=== PATIENT | male | born 1950 | race Caucasian/White ===

== ENCOUNTER 2018-01-09 11:09 | Inpatient (IN) | payer OTHER ==
[~2018-01-09] VITALS: Ht 175.3 cm; Wt 56.3 kg
[~2018-01-09 11:09] MED LIST: ALBU3IS INH; ALBU90OI INH; ASPI325 PO; Benazepril HCl10 MG PO; HYDR1TAB94 PO
[2018-01-09 11:37] LABS: Base Excess Venous -3.4 mmol/L; Bicarbonate Venous 21.7 mmol/L (24.0-30.0); PCO2 Venous 40.9 mmHg (38-42); PO2 Venous 73.1 mmHg (38-42); pH Blood Venous 7.35 (7.34-7.37)
[2018-01-09] MEDS ORDERED: [UNRECOGNIZED DRUG - CODE] PO (14:46)
[2018-01-09] MEDS ORDERED: ASPI81CH PO (15:13)
[2018-01-09 17:28] LABS: Adenovirus Not Detected (NOT DETECT); Bordetella pertussis Not Detected (NOT DETECT); Chlamydophila pneumoniae Not Detected (NOT DETECT); Coronavirus 229E Not Detected (NOT DETECT); Coronavirus HKU1 Not Detected (NOT DETECT); Coronavirus NL63 Not Detected (NOT DETECT); Coronavirus OC43 Not Detected (NOT DETECT); Human Metapneumovirus Not Detected (NOT DETECT); Human Rhinovirus/Enterovirus Not Detected (NOT DETECT); Influenza A/2009-H1 Not Detected (NOT DETECT); Influenza A/H1 Not Detected (NOT DETECT); Influenza A/H3 Not Detected (NOT DETECT); Influenza B Not Detected (NOT DETECT); Mycoplasma pneumoniae Not Detected (NOT DETECT); Parainfluenza Virus 1 Not Detected (NOT DETECT); Parainfluenza Virus 2 Not Detected (NOT DETECT); Parainfluenza Virus 3 Not Detected (NOT DETECT); Parainfluenza Virus 4 Not Detected (NOT DETECT); Respiratory Syncytial Virus Not Detected (NOT DETECT)
[2018-01-09 18:48] LABS: Influenza A Not Detected (NOT DETECT)
[2018-01-09] MEDS ORDERED: STIOLTO RESPIMAT4 GM INH (19:11)
[2018-01-09 23:17] LABS: Source, Urine Catheter
[2018-01-09 23:19] LABS: Bilirubin, Urine Neg (Neg); Blood, Urine 1+ (Neg); Glucose Qualitative, Urine 2+ (Neg); Ketones, Urine 1+ (Neg); Leukocyte Esterase, Urine Neg (Neg); Nitrite, Urine Neg (Neg); Protein, Urine 2+ (Neg); Urobilinogen, Urine NORM (Normal)
[2018-01-09 23:25] LABS: Amorphous Mod (0-Heavy); Appearance, Urine Hazy (Clear); Bacteria Rare /hpf; Color, Urine Yellow (P-Yellow); Hyaline Casts 0-2 /lpf (0-2); Red Blood Cells, Urine 0-2 /hpf (0-2); Squamous Epithelial Cells Few /hpf (Few); White Blood Cells, Urine Not Seen /hpf (0-5)
[2018-01-10 03:35] LABS: Hematocrit 39.7 % (37.0-53.0); Hemoglobin 13.2 g/dL (13.5-17.5); Mean Corpuscular HGB 31.4 pg (26.0-34.0); Mean Corpuscular HGB Conc 33.2 g/dL (31.5-36.5); Mean Corpuscular Volume 94 fL (80-100); Mean Platelet Volume 9.9 fL (9.1-12.4); Platelet Count 212 K/mm3 (150-400); RDW Coefficient Variation 13.9 % (11.7-14.2); RDW Standard Deviation 48.4 fL (35.1-46.3); Red Blood Cell Count 4.21 M/mm3 (4.30-5.90); White Blood Cell Count 4.76 K/mm3 (4.00-11.30)
[2018-01-10 03:52] LABS: Alanine Aminotransfer (ALT/SGP 15 U/L (12-78); Albumin, Blood 2.4 g/dL (3.4-5.0); Albumin/Globulin Ratio 0.8 (0.8-1.8); Alk Phos 44 U/L (50-136); Anion Gap 9 mmol/L (6-16); Aspartate Aminotrans (AST/SGOT 15 U/L (12-37); Bilirubin, Total 0.4 mg/dL (0.1-1.0); Blood Urea Nitrogen 19 mg/dL (8-24); Bun/Creatinine Ratio 28.6 (12.0-20.0); CO2, Blood 20 mmol/L (21-32); Calcium, Blood 7.1 mg/dL (8.5-10.1); Chloride, Blood 114 mmol/L (98-108); Creatinine, Blood 0.66 mg/dL (0.60-1.20); Globulin, Blood 3.1 g/dL (2.2-4.0); Glomerular Filtration Rate >60 (60-); Glucose, Blood 221 mg/dL (70-99); Magnesium, Blood 1.9 mg/dL (1.6-2.4); Phosphorus, Blood 1.9 mg/dL (2.5-4.9); Potassium, Blood 4.1 mmol/L (3.5-5.5); Sodium, Blood 143 mmol/L (136-145); Total Protein, Blood 5.5 g/dL (6.4-8.2)
[2018-01-10 04:11] LABS: BAND PERCENT MAN 21 % (0-8); BASOPHILS PERCENT MAN 0 % (0-2); EOSINOPHILS PERCENT MAN 0 % (0-6); LYMPHOCYTES ABSOLUTE MAN 0.66 K/mm3 (0.84-5.20); LYMPHOCYTES PERCENT MAN 14 % (21-46); METAMYELOCYTE ABSOLUTE MAN 0.47 K/mm3 (0.00-0.00); METAMYELOCYTE PERCENT MAN 10 % (0-0); MONOCYTES ABSOLUTE MAN 0.57 K/mm3 (0.16-1.47); MONOCYTES PERCENT MAN 12 % (4-13); MYELOCYTE ABSOLUTE MAN 0.19 K/mm3 (0.00-0.00); MYELOCYTE PERCENT MAN 4 % (0-0); NEUTROPHILS ABSOLUTE MAN 2.85 K/mm3 (1.96-9.15); SEG NEUTROPHILS PERCENT MAN 39 % (41-73); TOTAL CELLS COUNTED 100
[2018-01-10 04:43] LABS: PCO2 Arterial 32.8 mmHg (35-45); PO2 Arterial 93.9 mmHg (80-100); pH Blood Arterial 7.33 (7.35-7.45)
[2018-01-10 09:42] LABS: PCO2 Arterial 54.3 mmHg (35-45); PO2 Arterial 104 mmHg (80-100); pH Blood Arterial 7.15 (7.35-7.45)
[2018-01-10 11:05] LABS: PCO2 Arterial 39.1 mmHg (35-45); PO2 Arterial 64.2 mmHg (80-100)
[2018-01-10 11:06] LABS: pH Blood Arterial 7.28 (7.35-7.45)
[2018-01-11 04:36] LABS: Hematocrit 32.6 % (37.0-53.0); Hemoglobin 10.7 g/dL (13.5-17.5); Mean Corpuscular HGB 30.3 pg (26.0-34.0); Mean Corpuscular HGB Conc 32.8 g/dL (31.5-36.5); Mean Corpuscular Volume 92 fL (80-100); Mean Platelet Volume 10.9 fL (9.1-12.4); Platelet Count 175 K/mm3 (150-400); RDW Coefficient Variation 14.4 % (11.7-14.2); RDW Standard Deviation 48.9 fL (35.1-46.3); Red Blood Cell Count 3.53 M/mm3 (4.30-5.90); White Blood Cell Count 6.58 K/mm3 (4.00-11.30)
[2018-01-11 04:55] LABS: Anion Gap 6 mmol/L (6-16); Blood Urea Nitrogen 18 mg/dL (8-24); Bun/Creatinine Ratio 30.4 (12.0-20.0); CO2, Blood 23 mmol/L (21-32); Calcium, Blood 7.5 mg/dL (8.5-10.1); Chloride, Blood 114 mmol/L (98-108); Creatinine, Blood 0.59 mg/dL (0.60-1.20); Glomerular Filtration Rate >60 (60-); Glucose, Blood 165 mg/dL (70-99); Magnesium, Blood 2.3 mg/dL (1.6-2.4); Phosphorus, Blood 1.9 mg/dL (2.5-4.9); Potassium, Blood 4.1 mmol/L (3.5-5.5); Sodium, Blood 143 mmol/L (136-145)
[2018-01-11 05:08] LABS: BAND PERCENT MAN 6 % (0-8); BASOPHILS PERCENT MAN 0 % (0-2); EOSINOPHILS PERCENT MAN 0 % (0-6); LYMPHOCYTES ABSOLUTE MAN 0.46 K/mm3 (0.84-5.20); LYMPHOCYTES PERCENT MAN 7 % (21-46); MONOCYTES ABSOLUTE MAN 0.85 K/mm3 (0.16-1.47); MONOCYTES PERCENT MAN 13 % (4-13); NEUTROPHILS ABSOLUTE MAN 5.26 K/mm3 (1.96-9.15); SEG NEUTROPHILS PERCENT MAN 74 % (41-73); TOTAL CELLS COUNTED 100
[2018-01-11 05:24] LABS: PO2 Arterial 76.7 mmHg (80-100); pH Blood Arterial 7.38 (7.35-7.45)
[2018-01-12 03:58] LABS: BASOPHILS ABSOLUTE AUTO 0.01 K/mm3 (0.00-0.23); BASOPHILS PERCENT AUTO 0 % (0-2); Hematocrit 31.4 % (37.0-53.0); Hemoglobin 10.7 g/dL (13.5-17.5); LYMPHOCYTES ABSOLUTE AUTO 0.27 K/mm3 (0.84-5.20); LYMPHOCYTES PERCENT AUTO 4 % (21-46); MONOCYTES ABSOLUTE AUTO 0.72 K/mm3 (0.16-1.47); MONOCYTES PERCENT AUTO 10 % (4-13); Mean Corpuscular HGB 31.2 pg (26.0-34.0); Mean Corpuscular HGB Conc 34.1 g/dL (31.5-36.5); Mean Corpuscular Volume 92 fL (80-100); Mean Platelet Volume 10.5 fL (9.1-12.4); Platelet Count 181 K/mm3 (150-400); RDW Coefficient Variation 14.4 % (11.7-14.2); RDW Standard Deviation 48.9 fL (35.1-46.3); Red Blood Cell Count 3.43 M/mm3 (4.30-5.90); White Blood Cell Count 7.08 K/mm3 (4.00-11.30)
[2018-01-12 04:04] LABS: EOSINOPHILS PERCENT AUTO 0 % (0-6); IMMATURE GRAN ABSOLUTE AUTO 0.03 K/mm3 (0.00-0.10); IMMATURE GRAN PERCENT AUTO 0 % (0-1); NEUTROPHILS ABSOLUTE AUTO 6.05 K/mm3 (1.96-9.15); NEUTROPHILS PERCENT AUTO 86 % (41-73)
[2018-01-12 04:17] LABS: Anion Gap 7 mmol/L (6-16); Blood Urea Nitrogen 23 mg/dL (8-24); Bun/Creatinine Ratio 40.1 (12.0-20.0); CO2, Blood 28 mmol/L (21-32); Calcium, Blood 7.8 mg/dL (8.5-10.1); Chloride, Blood 112 mmol/L (98-108); Creatinine, Blood 0.57 mg/dL (0.60-1.20); Glomerular Filtration Rate >60 (60-); Glucose, Blood 128 mg/dL (70-99); Magnesium, Blood 2.2 mg/dL (1.6-2.4); Potassium, Blood 4.1 mmol/L (3.5-5.5); Sodium, Blood 147 mmol/L (136-145)
[2018-01-12 05:25] LABS: PCO2 Arterial 36.7 mmHg (35-45); PO2 Arterial 68.3 mmHg (80-100); pH Blood Arterial 7.48 (7.35-7.45)
[2018-01-13 03:32] LABS: BASOPHILS PERCENT AUTO 0 % (0-2); EOSINOPHILS PERCENT AUTO 0 % (0-6); Hematocrit 30.7 % (37.0-53.0); Hemoglobin 10.3 g/dL (13.5-17.5); IMMATURE GRAN ABSOLUTE AUTO 0.09 K/mm3 (0.00-0.10); IMMATURE GRAN PERCENT AUTO 1 % (0-1); LYMPHOCYTES ABSOLUTE AUTO 0.36 K/mm3 (0.84-5.20); LYMPHOCYTES PERCENT AUTO 5 % (21-46); MONOCYTES ABSOLUTE AUTO 0.63 K/mm3 (0.16-1.47); MONOCYTES PERCENT AUTO 9 % (4-13); Mean Corpuscular HGB Conc 33.6 g/dL (31.5-36.5); Mean Corpuscular Volume 93 fL (80-100); Mean Platelet Volume 10.4 fL (9.1-12.4); NEUTROPHILS PERCENT AUTO 85 % (41-73); Platelet Count 185 K/mm3 (150-400); RDW Coefficient Variation 14.4 % (11.7-14.2); RDW Standard Deviation 48.9 fL (35.1-46.3); Red Blood Cell Count 3.32 M/mm3 (4.30-5.90); White Blood Cell Count 7.08 K/mm3 (4.00-11.30)
[2018-01-13 03:49] LABS: Anion Gap 5 mmol/L (6-16); Blood Urea Nitrogen 21 mg/dL (8-24); Bun/Creatinine Ratio 39.8 (12.0-20.0); CO2, Blood 29 mmol/L (21-32); Calcium, Blood 7.5 mg/dL (8.5-10.1); Chloride, Blood 111 mmol/L (98-108); Creatinine, Blood 0.53 mg/dL (0.60-1.20); Glomerular Filtration Rate >60 (60-); Glucose, Blood 165 mg/dL (70-99); Magnesium, Blood 2.2 mg/dL (1.6-2.4); Phosphorus, Blood 2.2 mg/dL (2.5-4.9); Potassium, Blood 4.1 mmol/L (3.5-5.5); Sodium, Blood 145 mmol/L (136-145)
[2018-01-15 05:52] LABS: BASOPHILS ABSOLUTE AUTO 0.02 K/mm3 (0.00-0.23); BASOPHILS PERCENT AUTO 0 % (0-2); EOSINOPHILS ABSOLUTE AUTO 0.04 K/mm3 (0.00-0.68); EOSINOPHILS PERCENT AUTO 0 % (0-6); Hemoglobin 11.3 g/dL (13.5-17.5); IMMATURE GRAN ABSOLUTE AUTO 0.41 K/mm3 (0.00-0.10); IMMATURE GRAN PERCENT AUTO 4 % (0-1); LYMPHOCYTES ABSOLUTE AUTO 1.39 K/mm3 (0.84-5.20); LYMPHOCYTES PERCENT AUTO 15 % (21-46); MONOCYTES ABSOLUTE AUTO 1.59 K/mm3 (0.16-1.47); MONOCYTES PERCENT AUTO 17 % (4-13); Mean Corpuscular HGB 30.7 pg (26.0-34.0); Mean Corpuscular HGB Conc 33.2 g/dL (31.5-36.5); Mean Corpuscular Volume 92 fL (80-100); Mean Platelet Volume 10.2 fL (9.1-12.4); NEUTROPHILS ABSOLUTE AUTO 5.86 K/mm3 (1.96-9.15); NEUTROPHILS PERCENT AUTO 63 % (41-73); Platelet Count 233 K/mm3 (150-400); RDW Standard Deviation 47.5 fL (35.1-46.3); Red Blood Cell Count 3.68 M/mm3 (4.30-5.90); White Blood Cell Count 9.31 K/mm3 (4.00-11.30)
[2018-01-15 06:08] LABS: Anion Gap 5 mmol/L (6-16); Blood Urea Nitrogen 17 mg/dL (8-24); Bun/Creatinine Ratio 30.9 (12.0-20.0); CO2, Blood 31 mmol/L (21-32); Calcium, Blood 7.7 mg/dL (8.5-10.1); Chloride, Blood 105 mmol/L (98-108); Creatinine, Blood 0.55 mg/dL (0.60-1.20); Glomerular Filtration Rate >60 (60-); Glucose, Blood 77 mg/dL (70-99); Phosphorus, Blood 2.7 mg/dL (2.5-4.9); Sodium, Blood 141 mmol/L (136-145)
[2018-01-17] MEDS ORDERED: GUAI600T33 PO (11:33)
[2018-01-17] MEDS ORDERED: METO50 PO (11:33)
[2018-01-17] MEDS ORDERED: Nicoderm Cq1 EAC1 TD (11:34)
[2018-01-17] MEDS ORDERED: MIRALAX17 GM PO (11:34)
[2018-01-17] MEDS ORDERED: PRED10 PO (11:36)
[2018-01-17] MEDS ORDERED: CEFU500T30 PO (11:36)
== END 2018-01-17 13:36 | disposition home or self-care (01) | DRG 871 ==
LOC: ER 11:09 → ICUW 13:20 → ICUE 13:20 → ICUW 01-12 18:08 → MEDS 01-13 15:10
PROVIDERS: Emergency Medicine; Hospitalist; Internal Medicine; Internal Medicine Critical Care Medicine
PROC: 5A1945Z Respiratory Ventilation, 24-96 Consecutive Hours (ICD-10-PCS; principal; 2018-01-10)
PROC: 0BH17EZ Insertion of Endotracheal Airway into Trachea, Via Natural or Artificial Opening (ICD-10-PCS; 2018-01-10)
DX: A41.9 Sepsis, unspecified organism (principal); J18.9 Pneumonia, unspecified organism; E43 Unspecified severe protein-calorie malnutrition; G93.41 Metabolic encephalopathy; R65.21 Severe sepsis with septic shock; J96.21 Acute and chronic respiratory failure with hypoxia; J44.1 Chronic obstructive pulmonary disease with (acute) exacerbation; J44.0 Chronic obstructive pulmonary disease with (acute) lower respiratory infection; Z68.1 Body mass index [BMI] 19.9 or less, adult; I10 Essential (primary) hypertension; E78.5 Hyperlipidemia, unspecified; F17.200 Nicotine dependence, unspecified, uncomplicated
CPT/HCPCS: 31500; 31720; 36415; 36569; 36600; 51702; 70450; 71045; 71046; 71260; 80048; 80053; 81001; 82803; 82947; 83605; 83735; 83880; 84100; 85025; 85027; 87040; 87070; 87205; 87486; 87493; 87581; 87633; 87798; 93005; 93010; 94002; 94003; 94640; 94644; 94645; 94660; 94667; 94760; 94761; 96361; 96365; 97110; 97116; 97162; 97166; 97530; 97535; 99285-25; C1751; C9113; G8978; G8979; G8987; G8988; J0456; J0696; J1200; J1650; J1815; J1940; J2060; J2930; J3370; J7030; J7050; J7060; J7120; Q9967

== ENCOUNTER 2022-04-30 15:28 | Inpatient (IN) | payer OTHER ==
[~2022-04-30] VITALS: Ht 175.3 cm; Wt 46.3 kg
[~2022-04-30 15:28] MED LIST changes: +ASPI81CH PO; +CEFU500T30 PO; +GUAI600T33 PO; +METO50 PO; +MIRALAX17 GM PO; +Nicoderm Cq1 EAC1 TD; +PRED10 PO; +STIOLTO RESPIMAT4 GM INH; +[UNRECOGNIZED DRUG - CODE] PO
[2022-04-30] MEDS ORDERED: LISI5 PO (16:07)
[2022-04-30 16:13] LABS: BASOPHILS ABSOLUTE AUTO 0.06 K/mm3 (0.00-0.23); BASOPHILS PERCENT AUTO 0 % (0-2); EOSINOPHILS PERCENT AUTO 0 % (0-6); Hemoglobin 14.1 g/dL (13.5-17.5); IMMATURE GRAN ABSOLUTE AUTO 0.06 K/mm3 (0.00-0.10); IMMATURE GRAN PERCENT AUTO 0 % (0-1); LYMPHOCYTES ABSOLUTE AUTO 0.73 K/mm3 (0.84-5.20); LYMPHOCYTES PERCENT AUTO 5 % (21-46); MONOCYTES ABSOLUTE AUTO 1.42 K/mm3 (0.16-1.47); MONOCYTES PERCENT AUTO 10 % (4-13); Mean Corpuscular HGB 31.8 pg (26.0-34.0); Mean Corpuscular HGB Conc 34.4 g/dL (31.5-36.5); Mean Corpuscular Volume 92 fL (80-100); Mean Platelet Volume 9.4 fL (9.1-12.4); NEUTROPHILS ABSOLUTE AUTO 11.86 K/mm3 (1.96-9.15); NEUTROPHILS PERCENT AUTO 84 % (41-73); Platelet Count 273 K/mm3 (150-400); RDW Coefficient Variation 13.4 % (11.7-14.2); Red Blood Cell Count 4.44 M/mm3 (4.30-5.90); White Blood Cell Count 14.13 K/mm3 (4.00-11.30)
[2022-04-30 16:39] LABS: Albumin, Blood 3.6 g/dL (3.4-5.0); Albumin/Globulin Ratio 0.8 (0.8-1.8); Bilirubin, Total 0.7 mg/dL (0.1-1.0); Bun/Creatinine Ratio 33.7 (12.0-20.0); Calcium, Blood 9.4 mg/dL (8.5-10.1); Creatinine, Blood 0.92 mg/dL (0.60-1.20); Globulin, Blood 4.3 g/dL (2.2-4.0); Potassium, Blood 4.4 mmol/L (3.5-5.5); Total Protein, Blood 7.9 g/dL (6.4-8.2)
[2022-04-30 16:57] LABS: Influenza B, PCR NEGATIVE (NEGATIVE); Resp Syncytial Virus, PCR NEGATIVE (NEGATIVE); SARS-Cov-2 (COVID-19) PCR, MMC NEGATIVE (NEGATIVE)
[2022-04-30 18:12] LABS: Influenza A, PCR POSITIVE (NEGATIVE)
--- NOTE | 2022-05-01 00:44 | NUR ---
2124 RECEIVED PT TO 330 VIA BOBBIRMEHDI FROM ER. PT ABLE TO TX SELF TO BED. RECEIVED REPORT FROM MAYTE TUCKER. [facility] PT ADMITTED FOR INFLUENZA A, REPORTING SOB. BIOX 99% AT REST ON 1L O2. PT LATER UP TO EOB TO VOID BECOMING SOB WITH EXERTION; BIOX DECREASED TO 89%. O2 INCREASED TO 2L. PER REPORT, PT WITH HTN, HLD, COPD, AND AFIB. DR THOMAS TO AFTER ADMISSION TO [facility] ON PT. NEW ORDERS PLACED. PT RESTING QUIETLY AT THIS TIME. OCCASSIONAL LOOSE COUGH NOTED AND REPORTED. CALL LT IN REACH.
--- NOTE | 2022-05-01 04:39 | NUR ---
SHIFT SUMMARY: RESUMED CARE FOR THIS PT AT 0100. SITTING AT EDGE OF BED APPEARING TO BE SHORT OF BREATH. OFFERED BREATHING TREATMENT, PT ACCEPTED. RT PERFORMED TREATMENT, PT REPORTED IMPROVEMENT. WILL CONTINUE TO MONITOR AND REPORT TO DAY NURSE.
[2022-05-01 05:41] LABS: BASOPHILS ABSOLUTE AUTO 0.01 K/mm3 (0.00-0.23); BASOPHILS PERCENT AUTO 0 % (0-2); EOSINOPHILS PERCENT AUTO 0 % (0-6); Hematocrit 40.6 % (37.0-53.0); IMMATURE GRAN ABSOLUTE AUTO 0.04 K/mm3 (0.00-0.10); IMMATURE GRAN PERCENT AUTO 0 % (0-1); LYMPHOCYTES ABSOLUTE AUTO 0.26 K/mm3 (0.84-5.20); LYMPHOCYTES PERCENT AUTO 3 % (21-46); MONOCYTES ABSOLUTE AUTO 1.27 K/mm3 (0.16-1.47); MONOCYTES PERCENT AUTO 13 % (4-13); Mean Corpuscular HGB 31.6 pg (26.0-34.0); Mean Corpuscular HGB Conc 34.5 g/dL (31.5-36.5); Mean Corpuscular Volume 92 fL (80-100); Mean Platelet Volume 9.6 fL (9.1-12.4); NEUTROPHILS ABSOLUTE AUTO 8.02 K/mm3 (1.96-9.15); NEUTROPHILS PERCENT AUTO 84 % (41-73); Platelet Count 258 K/mm3 (150-400); RDW Coefficient Variation 13.4 % (11.7-14.2); RDW Standard Deviation 45.7 fL (35.1-46.3); Red Blood Cell Count 4.43 M/mm3 (4.30-5.90)
[2022-05-01 06:11] LABS: Albumin, Blood 3.1 g/dL (3.4-5.0); Albumin/Globulin Ratio 0.7 (0.8-1.8); Bilirubin, Total 0.5 mg/dL (0.1-1.0); Bun/Creatinine Ratio 43.9 (12.0-20.0); Calcium, Blood 9.1 mg/dL (8.5-10.1); Creatinine, Blood 0.75 mg/dL (0.60-1.20); Globulin, Blood 4.2 g/dL (2.2-4.0); Potassium, Blood 4.7 mmol/L (3.5-5.5); Total Protein, Blood 7.3 g/dL (6.4-8.2)
--- NOTE | 2022-05-01 17:18 | NUR ---
SHIFT SUMMARY: PT ALERT AND ORIENTED X4. HE HAS BEEN VERY PLEASANT AND COOPERATIVE WITH CARE. HE HAS NOT C/O PAIN ANY TIME DUING THE SHIFT. PT HAS HAD A HARSH, PRODUCTIVE COUGH THROUGHOUT THE DAY, STATES THIS HAS BEEN HAPPENING SINCE FLU SYMPTOMS STARTED OCCURING. PT TITRATED FROM 2 LITERS OF OXYGEN TO NOT NEEDING ANY IN ORDER TO BE ABLE TO D/C. PT HAS NOT C/O SOB. PT WAS SHOWN TO HAVE A BMI OF 15. ENSURE IS BEING PROVIDED TO PT. IV PATENT AND FLUSHING. TELE ON W/O ISSUES. CALL LIGHT IN REACH. BED IN LOWEST POSITION. WILL CONTINUE TO MONITOR.
--- NOTE | 2022-05-02 03:11 | NUR ---
Patient resting in bed at this time, no complaints of pain or discomfort.
[2022-05-02] MEDS ORDERED: GUAI600T33 PO (10:19)
[2022-05-02] MEDS ORDERED: Acetaminophen650 M1 PO (10:19)
[2022-05-02] MEDS ORDERED: VISBIOME 112.51 EACH PO (10:20)
[2022-05-02] MEDS ORDERED: Prednisone10 MG PO (10:21)
[2022-05-02] MEDS ORDERED: OSEL75CA PO (10:22)
--- NOTE | 2022-05-02 16:31 | NUR ---
DISCHARGE: PT DISCHARGED THE HOSPITAL VIA [facility]. PT IS SCHEDULED TO GO TO IN [facility] THEN [facility] IV D/C W/O ISSUES, PAIN, OR REDNESS. TELE D/C AND SENT BACK. ALL BELONGINGS SENT WITH PT.
== END 2022-05-02 16:08 | disposition home or self-care (01) | DRG 193 ==
LOC: ER 15:28 → MEDS 15:29
PROVIDERS: Emergency Medicine; ADMIT Internal Medicine
DX: J10.1 Influenza due to other identified influenza virus with other respiratory manifestations (principal); J96.01 Acute respiratory failure with hypoxia; J44.1 Chronic obstructive pulmonary disease with (acute) exacerbation; R64 Cachexia; Z68.1 Body mass index [BMI] 19.9 or less, adult; I10 Essential (primary) hypertension; F17.210 Nicotine dependence, cigarettes, uncomplicated; E78.5 Hyperlipidemia, unspecified; Z20.822 Contact with and (suspected) exposure to COVID-19; Z88.1 Allergy status to other antibiotic agents; Z79.51 Long term (current) use of inhaled steroids; Z79.82 Long term (current) use of aspirin; Z79.899 Other long term (current) drug therapy; Z79.52 Long term (current) use of systemic steroids; Z98.890 Other specified postprocedural states; Z87.01 Personal history of pneumonia (recurrent)
CPT/HCPCS: 0241U; 36415; 71045; 80053; 83880; 84484; 85025; 87070; 87205; 93005; 93010; 94640; 94644; 94664; 94760; 94761; 99285-25; A9270; J0456; J0696; J1650; J2930; J7050

== ENCOUNTER 2023-01-15 18:32 | Emergency (ER) | payer OTHER ==
[~2023-01-15] VITALS: Ht 172.7 cm; Wt 48.5 kg
[~2023-01-15 18:32] MED LIST changes: +Acetaminophen650 M1 PO; +LISI5 PO; +OSEL75CA PO; +Prednisone10 MG PO; +VISBIOME 112.51 EACH PO
[2023-01-15 19:08] VITALS: BP 122/92
[2023-01-15 19:40] LABS: Hematocrit 33.1 % (37.0-53.0); Hemoglobin 10.9 g/dL (13.5-17.5); Mean Corpuscular HGB 31.1 pg (26.0-34.0); Mean Corpuscular HGB Conc 32.9 g/dL (31.5-36.5); Mean Corpuscular Volume 95 fL (80-100); Mean Platelet Volume 9.4 fL (9.1-12.4); Platelet Count 342 K/mm3 (150-400); RDW Coefficient Variation 14.2 % (11.7-14.2); RDW Standard Deviation 49.1 fL (35.1-46.3); White Blood Cell Count 9.67 K/mm3 (4.00-11.30)
[2023-01-15 19:54] LABS: Albumin, Blood 3.4 g/dL (3.4-5.0); Bilirubin, Total 0.2 mg/dL (0.1-1.0); Bun/Creatinine Ratio 22.8 (12.0-20.0); Calcium, Blood 8.8 mg/dL (8.5-10.1); Creatinine, Blood 0.75 mg/dL (0.60-1.20); Globulin, Blood 3.5 g/dL (2.2-4.0); Potassium, Blood 3.8 mmol/L (3.5-5.5); Total Protein, Blood 6.9 g/dL (6.4-8.2)
[2023-01-15 20:01] LABS: BASOPHILS PERCENT MAN 0 % (0-2); EOSINOPHILS ABSOLUTE MAN 3.09 K/mm3 (0.00-0.68); EOSINOPHILS PERCENT MAN 32 % (0-6); LYMPHOCYTES ABSOLUTE MAN 1.25 K/mm3 (0.84-5.20); LYMPHOCYTES PERCENT MAN 13 % (21-46); MONOCYTES ABSOLUTE MAN 1.25 K/mm3 (0.16-1.47); MONOCYTES PERCENT MAN 13 % (4-13); NEUTROPHILS ABSOLUTE MAN 4.06 K/mm3 (1.96-9.15); SEG NEUTROPHILS PERCENT MAN 42 % (41-73); TOTAL CELLS COUNTED 100
[2023-01-15] MEDS ORDERED: CEPH500 PO (21:03)
[2023-01-15] MEDS ORDERED: SULTRIDS PO (21:03)
== END 2023-01-15 21:09 | disposition home or self-care (01) ==
LOC: ER 18:32
PROVIDERS: Student in an Organized Health Care Education/Training Program
DX: L03.116 Cellulitis of left lower limb (principal); F17.210 Nicotine dependence, cigarettes, uncomplicated; J44.9 Chronic obstructive pulmonary disease, unspecified; I10 Essential (primary) hypertension; E78.5 Hyperlipidemia, unspecified; Z88.1 Allergy status to other antibiotic agents; Z91.011 Allergy to milk products; Z79.51 Long term (current) use of inhaled steroids; Z79.82 Long term (current) use of aspirin; Z79.899 Other long term (current) drug therapy
CPT/HCPCS: 80053; 85025; 93971; 99284-25; A9270

== ENCOUNTER 2023-02-20 20:33 | Emergency (ER) | payer OTHER ==
[~2023-02-20] VITALS: Ht 175.3 cm; Wt 49.0 kg
[~2023-02-20 20:33] MED LIST changes: +CEPH500 PO; +SULTRIDS PO
[2023-02-20 22:07] LABS: BASOPHILS ABSOLUTE AUTO 0.13 K/mm3 (0.00-0.23); BASOPHILS PERCENT AUTO 1 % (0-2); EOSINOPHILS ABSOLUTE AUTO 0.88 K/mm3 (0.00-0.68); EOSINOPHILS PERCENT AUTO 8 % (0-6); Hematocrit 31.9 % (37.0-53.0); Hemoglobin 10.7 g/dL (13.5-17.5); IMMATURE GRAN ABSOLUTE AUTO 0.04 K/mm3 (0.00-0.10); IMMATURE GRAN PERCENT AUTO 0 % (0-1); LYMPHOCYTES PERCENT AUTO 18 % (21-46); MONOCYTES ABSOLUTE AUTO 1.76 K/mm3 (0.16-1.47); MONOCYTES PERCENT AUTO 16 % (4-13); Mean Corpuscular HGB 31.5 pg (26.0-34.0); Mean Corpuscular HGB Conc 33.5 g/dL (31.5-36.5); Mean Corpuscular Volume 94 fL (80-100); Mean Platelet Volume 8.9 fL (9.1-12.4); NEUTROPHILS ABSOLUTE AUTO 6.05 K/mm3 (1.96-9.15); NEUTROPHILS PERCENT AUTO 56 % (41-73); Platelet Count 187 K/mm3 (150-400); RDW Coefficient Variation 14.4 % (11.7-14.2); RDW Standard Deviation 49.3 fL (35.1-46.3); White Blood Cell Count 10.76 K/mm3 (4.00-11.30)
[2023-02-20 22:30] LABS: Albumin, Blood 3.6 g/dL (3.4-5.0); Albumin/Globulin Ratio 1.1 (0.8-1.8); Bilirubin, Total 0.2 mg/dL (0.1-1.0); Bun/Creatinine Ratio 24.4 (12.0-20.0); Calcium, Blood 8.8 mg/dL (8.5-10.1); Creatinine, Blood 0.74 mg/dL (0.60-1.20); Globulin, Blood 3.3 g/dL (2.2-4.0); Potassium, Blood 3.8 mmol/L (3.5-5.5); Total Protein, Blood 6.9 g/dL (6.4-8.2)
[2023-02-21 02:00] VITALS: BP 172/97
[2023-02-21] MEDS ORDERED: METPRE4DP PO (02:14)
== END 2023-02-21 02:25 | disposition home or self-care (01) ==
LOC: ER 20:33
PROVIDERS: Emergency Medicine
DX: J44.1 Chronic obstructive pulmonary disease with (acute) exacerbation (principal); I10 Essential (primary) hypertension; E78.5 Hyperlipidemia, unspecified; Z91.011 Allergy to milk products; Z88.1 Allergy status to other antibiotic agents; F17.210 Nicotine dependence, cigarettes, uncomplicated; Z20.822 Contact with and (suspected) exposure to COVID-19
CPT/HCPCS: 71046; 80053; 84484; 85025; 93005; 93010; 94640; 94664; 96374; 99284-25; A9270; J2930

== ENCOUNTER 2023-04-12 16:12 | Emergency (ER) | payer OTHER ==
[~2023-04-12] VITALS: Ht 175.3 cm; Wt 49.0 kg
[~2023-04-12 16:12] MED LIST changes: +METPRE4DP PO
[2023-04-12 16:31] LABS: Base Excess Venous 9.9 mmol/L; Bicarbonate Venous 31.9 mmol/L (24.0-30.0); PCO2 Venous 60.8 mmHg (38-42); pH Blood Venous 7.37 (7.34-7.37)
[2023-04-12 16:32] LABS: BASOPHILS PERCENT AUTO 1 % (0-2); EOSINOPHILS ABSOLUTE AUTO 0.84 K/mm3 (0.00-0.68); EOSINOPHILS PERCENT AUTO 9 % (0-6); Hematocrit 34.3 % (37.0-53.0); Hemoglobin 11.5 g/dL (13.5-17.5); IMMATURE GRAN ABSOLUTE AUTO 0.03 K/mm3 (0.00-0.10); IMMATURE GRAN PERCENT AUTO 0 % (0-1); LYMPHOCYTES ABSOLUTE AUTO 1.69 K/mm3 (0.84-5.20); LYMPHOCYTES PERCENT AUTO 18 % (21-46); MONOCYTES ABSOLUTE AUTO 1.52 K/mm3 (0.16-1.47); MONOCYTES PERCENT AUTO 16 % (4-13); Mean Corpuscular HGB 31.6 pg (26.0-34.0); Mean Corpuscular HGB Conc 33.5 g/dL (31.5-36.5); Mean Corpuscular Volume 94 fL (80-100); Mean Platelet Volume 9.4 fL (9.1-12.4); NEUTROPHILS ABSOLUTE AUTO 5.46 K/mm3 (1.96-9.15); NEUTROPHILS PERCENT AUTO 57 % (41-73); Platelet Count 328 K/mm3 (150-400); RDW Coefficient Variation 13.9 % (11.7-14.2); RDW Standard Deviation 48.1 fL (35.1-46.3); Red Blood Cell Count 3.64 M/mm3 (4.30-5.90); White Blood Cell Count 9.64 K/mm3 (4.00-11.30)
[2023-04-12 16:56] LABS: Albumin, Blood 3.7 g/dL (3.4-5.0); Albumin/Globulin Ratio 1.1 (0.8-1.8); Bilirubin, Total 0.2 mg/dL (0.1-1.0); Bun/Creatinine Ratio 13.2 (12.0-20.0); Calcium, Blood 8.7 mg/dL (8.5-10.1); Creatinine, Blood 0.91 mg/dL (0.60-1.20); Globulin, Blood 3.4 g/dL (2.2-4.0); Potassium, Blood 4.1 mmol/L (3.5-5.5); Total Protein, Blood 7.1 g/dL (6.4-8.2)
[2023-04-12] MEDS ORDERED: PRED20 PO (18:56)
[2023-04-12 19:05] VITALS: BP 121/76
== END 2023-04-12 19:07 | disposition home or self-care (01) ==
LOC: ER 16:12
PROVIDERS: Emergency Medicine
DX: J43.9 Emphysema, unspecified (principal); I10 Essential (primary) hypertension; F17.210 Nicotine dependence, cigarettes, uncomplicated; Z88.1 Allergy status to other antibiotic agents; Z91.011 Allergy to milk products; Z79.82 Long term (current) use of aspirin; Z79.899 Other long term (current) drug therapy; Z79.52 Long term (current) use of systemic steroids
CPT/HCPCS: 71045; 80053; 82803; 84484; 85025; 93005; 93010; 94644; 94664; 96365; 96366; 99285-25; J3475

== ENCOUNTER 2023-06-15 19:10 | Emergency (ER) | payer OTHER ==
[~2023-06-15] VITALS: Ht 175.3 cm; Wt 49.0 kg
[~2023-06-15 19:10] MED LIST changes: +PRED20 PO
[2023-06-15 19:37] LABS: Base Excess Venous 6.6 mmol/L; Bicarbonate Venous 28.6 mmol/L (24.0-30.0); PCO2 Venous 57.9 mmHg (38-42); pH Blood Venous 7.35 (7.34-7.37)
[2023-06-15 19:39] LABS: BASOPHILS ABSOLUTE AUTO 0.09 K/mm3 (0.00-0.23); BASOPHILS PERCENT AUTO 1 % (0-2); EOSINOPHILS ABSOLUTE AUTO 0.58 K/mm3 (0.00-0.68); EOSINOPHILS PERCENT AUTO 7 % (0-6); Hematocrit 35.8 % (37.0-53.0); Hemoglobin 11.7 g/dL (13.5-17.5); IMMATURE GRAN ABSOLUTE AUTO 0.04 K/mm3 (0.00-0.10); IMMATURE GRAN PERCENT AUTO 1 % (0-1); LYMPHOCYTES ABSOLUTE AUTO 1.98 K/mm3 (0.84-5.20); LYMPHOCYTES PERCENT AUTO 23 % (21-46); MONOCYTES ABSOLUTE AUTO 1.16 K/mm3 (0.16-1.47); MONOCYTES PERCENT AUTO 14 % (4-13); Mean Corpuscular HGB Conc 32.7 g/dL (31.5-36.5); Mean Corpuscular Volume 95 fL (80-100); Mean Platelet Volume 9.6 fL (9.1-12.4); NEUTROPHILS ABSOLUTE AUTO 4.74 K/mm3 (1.96-9.15); NEUTROPHILS PERCENT AUTO 55 % (41-73); Platelet Count 216 K/mm3 (150-400); RDW Coefficient Variation 13.4 % (11.7-14.2); RDW Standard Deviation 46.4 fL (35.1-46.3); Red Blood Cell Count 3.78 M/mm3 (4.30-5.90); White Blood Cell Count 8.59 K/mm3 (4.00-11.30)
[2023-06-15 19:53] LABS: Albumin, Blood 3.7 g/dL (3.4-5.0); Bilirubin, Total 0.4 mg/dL (0.1-1.0); Bun/Creatinine Ratio 19.5 (12.0-20.0); Calcium, Blood 9.3 mg/dL (8.5-10.1); Creatinine, Blood 0.72 mg/dL (0.60-1.20); Globulin, Blood 3.6 g/dL (2.2-4.0); Potassium, Blood 4.6 mmol/L (3.5-5.5); Total Protein, Blood 7.3 g/dL (6.4-8.2)
[2023-06-15 20:47] VITALS: BP 117/75
[2023-06-15] MEDS ORDERED: Prednisone20 MG PO (21:04)
== END 2023-06-15 21:40 | disposition home or self-care (01) ==
LOC: ER 19:10
PROVIDERS: Emergency Medicine
DX: J44.1 Chronic obstructive pulmonary disease with (acute) exacerbation (principal); J96.12 Chronic respiratory failure with hypercapnia; Z99.81 Dependence on supplemental oxygen; F17.210 Nicotine dependence, cigarettes, uncomplicated; E78.5 Hyperlipidemia, unspecified; I10 Essential (primary) hypertension; Z88.1 Allergy status to other antibiotic agents; Z91.011 Allergy to milk products; Z79.899 Other long term (current) drug therapy; Z79.82 Long term (current) use of aspirin
CPT/HCPCS: 71045; 80053; 82803; 85025

== ENCOUNTER 2023-07-01 08:01 | Inpatient (IN) | payer OTHER ==
[~2023-07-01] VITALS: Ht 175.3 cm; Wt 49.8 kg
[~2023-07-01 08:01] MED LIST changes: +Prednisone20 MG PO
[2023-07-01] MEDS ORDERED: Albuterol 2.5 MG/3 ML VIAL INH SCH ×2 (08:25→11:15)
[2023-07-01] MEDS ORDERED: PredniSONE 20 MG Tab PO ONE (08:25)
[2023-07-01] MEDS ORDERED: Ipratropium/Albuterol SulF 2.5-0.5MG/3 ML Amp INH ONE (08:25)
[2023-07-01] MEDS ORDERED: Azithromycin 250 MG Tab PO ONE (08:25)
[2023-07-01] MEDS ORDERED: NS 1,000 ML IV SCH ×2 (08:25→10:00)
[2023-07-01 08:32] LABS: BASOPHILS ABSOLUTE AUTO 0.08 K/mm3 (0.00-0.23); BASOPHILS PERCENT AUTO 1 % (0-2); EOSINOPHILS ABSOLUTE AUTO 0.48 K/mm3 (0.00-0.68); EOSINOPHILS PERCENT AUTO 7 % (0-6); Hematocrit 33.3 % (37.0-53.0); Hemoglobin 11.1 g/dL (13.5-17.5); IMMATURE GRAN ABSOLUTE AUTO 0.04 K/mm3 (0.00-0.10); IMMATURE GRAN PERCENT AUTO 1 % (0-1); LYMPHOCYTES ABSOLUTE AUTO 1.09 K/mm3 (0.84-5.20); LYMPHOCYTES PERCENT AUTO 15 % (21-46); MONOCYTES ABSOLUTE AUTO 0.79 K/mm3 (0.16-1.47); MONOCYTES PERCENT AUTO 11 % (4-13); Mean Corpuscular HGB 31.8 pg (26.0-34.0); Mean Corpuscular HGB Conc 33.3 g/dL (31.5-36.5); Mean Corpuscular Volume 95 fL (80-100); Mean Platelet Volume 9.4 fL (9.1-12.4); NEUTROPHILS PERCENT AUTO 66 % (41-73); Platelet Count 292 K/mm3 (150-400); RDW Coefficient Variation 13.1 % (11.7-14.2); RDW Standard Deviation 45.5 fL (35.1-46.3); Red Blood Cell Count 3.49 M/mm3 (4.30-5.90); White Blood Cell Count 7.38 K/mm3 (4.00-11.30)
[2023-07-01 08:50] LABS: Bun/Creatinine Ratio 9.7 (12.0-20.0); Creatinine, Blood 0.72 mg/dL (0.60-1.20); Magnesium, Blood 2.1 mg/dL (1.6-2.4); Potassium, Blood 4.2 mmol/L (3.5-5.5)
[2023-07-01] MEDS ORDERED: STIOLTO RESPIMAT4 G1 INH (10:02)
[2023-07-01] MEDS ORDERED: Ipratropium/Albuterol SulF 2.5-0.5MG/3 ML Amp INH SCH (13:05)
[2023-07-01 13:12] LABS: Influenza A, PCR NEGATIVE (NEGATIVE); Influenza B, PCR NEGATIVE (NEGATIVE); Resp Syncytial Virus, PCR NEGATIVE (NEGATIVE); SARS-Cov-2 (COVID-19) PCR, MMC NEGATIVE (NEGATIVE)
[2023-07-01] MEDS ORDERED: Prochlorperazine Edisylate 10 mg Vial IV PRN (13:15)
[2023-07-01] MEDS ORDERED: Acetaminophen 325 MG TABLET PO PRN (13:20)
[2023-07-01] MEDS ORDERED: FLU VACC QS2023-24(6MOS UP)/PF 60 MCG/0.5 ML SYRINGE IM SCH (13:20)
[2023-07-01] MEDS ORDERED: LORazepam 1 MG Tab PO PRN (13:20)
[2023-07-01] MEDS ORDERED: MethylPREDNISolone Sod Succ 125 MG Vial IV SCH (16:00)
[2023-07-01 16:22] VITALS: BP 125/91
[2023-07-01] MEDS ORDERED: Nicotine 14 MG PATCH TOP SCH (17:00)
[2023-07-01] MEDS ORDERED: ATOR20 PO (19:16)
--- NOTE | 2023-07-01 19:48 | NUR ---
SHIFT SUMMARY- PT ALERT AND ORIENTED, HE IS INDEPENDENT WITH THE URINAL BUT A SBA WITH AMBULATION D/T DYSPNEA ON EXERTION. PT WAS BECOMING MORE IRRITABLE THIS EVENING, HOWEVER HE HAS HAD SEVERAL DOSES OF STEROIDS TODAY. CALLED DR WHITE PRIOR TO GIVING THE 1600 DOSE OF SOLUMEDROL THE PT HAD PO PREDNISONE IN THE ER 60MG. ORDER RECIEVED TO GIVE THE 1600 DOSE. ADMISSION HAS BEEN COMPLETED, PT HAS SOME SCRATCHES ON HIS BACK THAT SEEM TO BE SELF INFLICTED R/T DRY SKIN. PT CLEANED, MEPILEX PLACED ON COCCYX TO PREVENT BREAKDOWN, BLANCHING REDNESS NOTED THERE ON ADMISSION. PT LIVES IN A [place] BUT STATED HE HAS PLACED AN APPLICATION WITH [facility] AND IS WAITING FOR AN APPARTMENT THERE. BEDSIDE REPORT COMPLETED WITH NIGHT RN. NO S&S OF DISTRESS NOTED AT THE TIME OF BEDSIDE REPORT.
[2023-07-01 19:59] VITALS: BP 115/75
[2023-07-02 02:54] VITALS: BP 111/83
[2023-07-02 05:16] LABS: BASOPHILS ABSOLUTE AUTO 0.01 K/mm3 (0.00-0.23); BASOPHILS PERCENT AUTO 0 % (0-2); EOSINOPHILS PERCENT AUTO 0 % (0-6); Hematocrit 31.9 % (37.0-53.0); Hemoglobin 10.7 g/dL (13.5-17.5); IMMATURE GRAN ABSOLUTE AUTO 0.04 K/mm3 (0.00-0.10); IMMATURE GRAN PERCENT AUTO 1 % (0-1); LYMPHOCYTES ABSOLUTE AUTO 0.47 K/mm3 (0.84-5.20); LYMPHOCYTES PERCENT AUTO 8 % (21-46); MONOCYTES ABSOLUTE AUTO 0.23 K/mm3 (0.16-1.47); MONOCYTES PERCENT AUTO 4 % (4-13); Mean Corpuscular HGB 31.5 pg (26.0-34.0); Mean Corpuscular HGB Conc 33.5 g/dL (31.5-36.5); Mean Corpuscular Volume 94 fL (80-100); Mean Platelet Volume 9.2 fL (9.1-12.4); NEUTROPHILS ABSOLUTE AUTO 5.48 K/mm3 (1.96-9.15); NEUTROPHILS PERCENT AUTO 88 % (41-73); Platelet Count 260 K/mm3 (150-400); RDW Coefficient Variation 12.9 % (11.7-14.2); RDW Standard Deviation 44.5 fL (35.1-46.3); White Blood Cell Count 6.23 K/mm3 (4.00-11.30)
[2023-07-02 05:17] LABS: Base Excess Venous 3.7 mmol/L; Bicarbonate Venous 27.5 mmol/L (24.0-30.0); PCO2 Venous 39.9 mmHg (38-42); pH Blood Venous 7.45 (7.34-7.37)
[2023-07-02 05:42] LABS: Bun/Creatinine Ratio 17.6 (12.0-20.0); Calcium, Blood 8.9 mg/dL (8.5-10.1); Creatinine, Blood 0.63 mg/dL (0.60-1.20); Potassium, Blood 4.1 mmol/L (3.5-5.5)
--- NOTE | 2023-07-02 06:21 | NUR ---
SHIFT SUMMARY: PT IS ADMITTED FOR COPD EXACERBATION AND IS A FULL CODE. IS ALERT AND ABLE TO MAKE NEEDS KNOWN. ADLs HAVE BEEN 1P STANDBY DENIES PAIN OR DISCOMFORT WHEN ASKED. TELLY REPORTS SINUS AT 87.
[2023-07-02 07:39] VITALS: BP 105/74
[2023-07-02] MEDS ORDERED: Enoxaparin 40 MG/0.4 ML SYR SC SCH (09:00)
[2023-07-02] MEDS ORDERED: Lisinopril 5 MG Tab PO SCH (09:00)
[2023-07-02] MEDS ORDERED: Azithromycin 500 MG in NS 250 ML IV SCH (09:00)
--- NOTE | 2023-07-02 14:23 | NUR ---
Spiritual care visit conducted. Patient tells me about his medical history and what he is currently struggling with clinically. 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 He is tearful at times as he discusses the challenges of life but reverts back to his ar as the source of comfort and strength. I listening empathically, normalize his experience and provide therapeutic listening, grief support, and prayer. Patient repsonded well and showed signs of being encouraged in his ar. I will continue remain available to the patient.
[2023-07-02 16:20] VITALS: BP 112/78
[2023-07-02] MEDS ORDERED: PredniSONE 20 MG Tab PO SCH (17:00)
[2023-07-02 19:34] VITALS: BP 115/85
--- NOTE | 2023-07-02 20:28 | NUR ---
SHIFT SUMMARY- PT ALERT AND ORIENTED AND VERY PLEASENT AND COOPERATIVE WITH CARE. PT SEEMS TO BE IMPROVED FROM THIS MORNING. HE WAS SWITCHED TO PO STEROIDS TODAY. BEDSIDE REPORT COMPLETED WITH NIGHT RN NO S&S OF DISTRESS NOTED, PT IN BED, CALL LIGHT IN REACH.
[2023-07-03 03:11] VITALS: BP 118/83
--- NOTE | 2023-07-03 05:36 | NUR ---
SHIFT SUMMARY PT A&OX4 AND PLEASANT. PT ON 3L OF OXYGEN AND SATING AT ABOUT 100%. VSS. NO ACUTE CHANGES. PT CALLS APPROPRIATELY. PT C/O CHRONIC RIGHT SHOULDER PAIN. MEDCIATED PER EMAR. BED IN LOWEST POSITION AND CALL LIGHT IN REACH.
[2023-07-03 07:40] VITALS: BP 114/74
[2023-07-03 08:16] VITALS: BP 118/77
[2023-07-03 15:43] VITALS: BP 94/58
[2023-07-03 18:01] VITALS: BP 117/74
--- NOTE | 2023-07-03 18:38 | NUR ---
PT PLEASANT. HAS BEEN ON 3L O2 TODAY. DID HAVE SOFT BP THIS AFT. IMPROVED. PT STATES FEELING PRETTY DECENT TODAY. DENIES B/M TODAY. NO BREATHING CHANGES NOTED TODAY. NO NEW CONCERNS NOTED. BED IN LOW POSITION, CALL LITE IN REACH CALLS APPROP.
[2023-07-03 19:34] VITALS: BP 102/67
[2023-07-04 03:17] VITALS: BP 114/77
--- NOTE | 2023-07-04 04:35 | NUR ---
SHIFT SUMMARY PT A&OX4 AND PLEASANT. NO ACUTE CHANGES. PT C/O ONCE OF RIGHT SHOULDER AND PAIN AND MEDICATED WITH TYLENOL PER EMAR. PT REMINDED TO SHIFT WEIGHT WHILE IN BED TO PREVENT SKIN BREAKDOWN. CONTINUING OXYGEN AT 3L/MIN WHICH IS PT'S BASLINE. VSS. BED IN LOWEST POSITION AND CALL LIGHT IN REACH.
[2023-07-04 04:48] LABS: Base Excess Venous 7 mmol/L; Bicarbonate Venous 29.9 mmol/L (24.0-30.0); PCO2 Venous 48.3 mmHg (38-42); pH Blood Venous 7.42 (7.34-7.37)
[2023-07-04 04:58] LABS: BASOPHILS ABSOLUTE AUTO 0.01 K/mm3 (0.00-0.23); BASOPHILS PERCENT AUTO 0 % (0-2); EOSINOPHILS PERCENT AUTO 0 % (0-6); Hematocrit 32.4 % (37.0-53.0); Hemoglobin 10.9 g/dL (13.5-17.5); IMMATURE GRAN ABSOLUTE AUTO 0.04 K/mm3 (0.00-0.10); IMMATURE GRAN PERCENT AUTO 1 % (0-1); LYMPHOCYTES ABSOLUTE AUTO 0.48 K/mm3 (0.84-5.20); LYMPHOCYTES PERCENT AUTO 6 % (21-46); MONOCYTES ABSOLUTE AUTO 0.86 K/mm3 (0.16-1.47); MONOCYTES PERCENT AUTO 10 % (4-13); Mean Corpuscular HGB 31.8 pg (26.0-34.0); Mean Corpuscular HGB Conc 33.6 g/dL (31.5-36.5); Mean Corpuscular Volume 95 fL (80-100); Mean Platelet Volume 9.5 fL (9.1-12.4); NEUTROPHILS ABSOLUTE AUTO 7.05 K/mm3 (1.96-9.15); NEUTROPHILS PERCENT AUTO 84 % (41-73); Platelet Count 279 K/mm3 (150-400); RDW Coefficient Variation 13.2 % (11.7-14.2); RDW Standard Deviation 45.5 fL (35.1-46.3); Red Blood Cell Count 3.43 M/mm3 (4.30-5.90); White Blood Cell Count 8.44 K/mm3 (4.00-11.30)
[2023-07-04 05:44] LABS: Bun/Creatinine Ratio 22.7 (12.0-20.0); Creatinine, Blood 0.79 mg/dL (0.60-1.20); Potassium, Blood 4.4 mmol/L (3.5-5.5)
[2023-07-04 07:17] VITALS: BP 107/79
--- NOTE | 2023-07-04 10:53 | NUR ---
DR WHITE ROUNDED ON PATIENT, PATIENT TO BE DISCHARGE HOME, PATIENT ALREADY HAS A CAREGIVER PICKING HIM UP FROM THE HOSPITAL AND HAS PORTABLE HOME OXYGEN HERE TO GO HOME WITH
[2023-07-04] MEDS ORDERED: Nicoderm Cq1 EAC1 TOP (13:12)
[2023-07-04] MEDS ORDERED: Prednisone10 MG PO (13:15)
[2023-07-04] MEDS ORDERED: STIOLTO RESPIMAT4 G1 INH (13:17)
--- NOTE | 2023-07-04 16:08 | NUR ---
1410 patient discharged, discharge instructions given to patient and caregiver. both stated understand and denied further questions, pleasant and cooperative to care
== END 2023-07-04 16:01 | disposition home or self-care (01) | DRG 189 ==
LOC: ER 08:01 → MEDS 15:12
PROVIDERS: Student in an Organized Health Care Education/Training Program; ADMIT Internal Medicine
DX: J96.21 Acute and chronic respiratory failure with hypoxia (principal); E43 Unspecified severe protein-calorie malnutrition; J44.1 Chronic obstructive pulmonary disease with (acute) exacerbation; Z68.1 Body mass index [BMI] 19.9 or less, adult; E87.1 Hypo-osmolality and hyponatremia; J96.22 Acute and chronic respiratory failure with hypercapnia; E88.A Wasting disease (syndrome) due to underlying condition; D63.8 Anemia in other chronic diseases classified elsewhere; I10 Essential (primary) hypertension; E78.5 Hyperlipidemia, unspecified; J43.9 Emphysema, unspecified; F17.210 Nicotine dependence, cigarettes, uncomplicated; Z11.52 Encounter for screening for COVID-19; Z99.81 Dependence on supplemental oxygen; Z88.1 Allergy status to other antibiotic agents; Z79.52 Long term (current) use of systemic steroids; Z79.82 Long term (current) use of aspirin
CPT/HCPCS: 0241U; 36415; 71046; 80048; 82803; 83735; 84145; 85025; 94640; 94644; 94664; 94760; 94762; 96360; 96361; 99285-25; A9270; J0456; J1650; J2930; J7030; J7050; J7512

== ENCOUNTER 2024-04-18 13:18 | Inpatient (IN) | payer OTHER ==
[~2024-04-18] VITALS: Ht 175.3 cm; Wt 44.8 kg
[~2024-04-18 13:18] MED LIST changes: +ALBU2.5V5 INH; +B-1100 M1 PO; +LEVO750 PO; +MOME220I INH; +Nicoderm Cq1 EAC1 TOP; +PANT20 PO; +Pulmicort Fle180 MCG INH; +ROBITUSSIN30 MG/511 PO; +STIOLTO RESPIMAT4 G1 INH; +ZYRTEC10 M2 PO; +[UNRECOGNIZED DRUG - OTHER] PO
[2024-04-18] MEDS ORDERED: Ketorolac Tromethamine 30mg Vial IM ONE (14:10)
[2024-04-18] MEDS ORDERED: Morphine Sulfate 4 MG/1 ML Injection IV ONE (16:20)
[2024-04-18] MEDS ORDERED: Methocarbamol 500 MG Tab PO ONE ×2 (16:20→23:40)
[2024-04-18] MEDS ORDERED: Ipratropium/Albuterol SulF 2.5-0.5MG/3 ML Amp INH ONE (16:25)
[2024-04-18] MEDS ORDERED: Nicotine 14 MG PATCH TOP ONE (16:25)
[2024-04-18] MEDS ORDERED: Acetaminophen 325 MG TABLET PO PRN (16:50)
[2024-04-18] MEDS ORDERED: Naloxone HCl 0.4MG / ML 1ML Vial IV PRN (16:55)
[2024-04-18] MEDS ORDERED: Ondansetron HCl 2 MG / ML 2ML Vial IV PRN (16:55)
[2024-04-18] MEDS ORDERED: FLU VACC TS2024-25(6MOS UP)/PF 45 MCG/0.5 ML SYRINGE IM SCH (16:55)
[2024-04-18] MEDS ORDERED: Morphine Sulfate 4 MG/1 ML Injection IV PRN (16:55)
[2024-04-18] MEDS ORDERED: Ketorolac Tromethamine 15mg Vial IV PRN (17:05)
[2024-04-18 19:02] LABS: BASOPHILS ABSOLUTE AUTO 0.07 K/mm3 (0.00-0.23); BASOPHILS PERCENT AUTO 1 % (0-2); EOSINOPHILS ABSOLUTE AUTO 0.27 K/mm3 (0.00-0.68); EOSINOPHILS PERCENT AUTO 2 % (0-6); Hematocrit 31.2 % (37.0-53.0); Hemoglobin 10.5 g/dL (13.5-17.5); IMMATURE GRAN ABSOLUTE AUTO 0.04 K/mm3 (0.00-0.10); IMMATURE GRAN PERCENT AUTO 0 % (0-1); LYMPHOCYTES ABSOLUTE AUTO 0.69 K/mm3 (0.84-5.20); LYMPHOCYTES PERCENT AUTO 6 % (21-46); MONOCYTES ABSOLUTE AUTO 1.26 K/mm3 (0.16-1.47); MONOCYTES PERCENT AUTO 11 % (4-13); Mean Corpuscular HGB 30.7 pg (26.0-34.0); Mean Corpuscular HGB Conc 33.7 g/dL (31.5-36.5); Mean Corpuscular Volume 91 fL (80-100); Mean Platelet Volume 8.9 fL (9.1-12.4); NEUTROPHILS PERCENT AUTO 80 % (41-73); Platelet Count 219 K/mm3 (150-400); RDW Coefficient Variation 14.2 % (11.7-14.2); RDW Standard Deviation 47.9 fL (35.1-46.3); Red Blood Cell Count 3.42 M/mm3 (4.30-5.90); White Blood Cell Count 11.63 K/mm3 (4.00-11.30)
[2024-04-18 19:16] LABS: Base Excess Venous -0.7 mmol/L; Bicarbonate Venous 23.4 mmol/L (24.0-30.0); PCO2 Venous 41.3 mmHg (38-42); pH Blood Venous 7.38 (7.34-7.37)
[2024-04-18 19:20] LABS: Albumin/Globulin Ratio 1.1 (0.8-1.8); Bun/Creatinine Ratio 14.3 (12.0-20.0); Calcium, Blood 8.5 mg/dL (8.5-10.1); Creatinine, Blood 0.84 mg/dL (0.60-1.20); Globulin, Blood 2.8 g/dL (2.2-4.0); Potassium, Blood 3.5 mmol/L (3.5-5.5); Total Protein, Blood 5.8 g/dL (6.4-8.2)
[2024-04-18] MEDS ORDERED: Aspir 8181 MG PO (19:47)
[2024-04-18 20:04] VITALS: BP 118/77
[2024-04-18] MEDS ORDERED: Albuterol 2.5 MG/3 ML VIAL INH PRN (20:15)
[2024-04-18] MEDS ORDERED: Mometasone Furoate Inhaler 220 mcg 14 ACT INH SCH (20:20)
[2024-04-18] MEDS ORDERED: TIOTROPIUM INH SCH (20:25)
[2024-04-18] MEDS ORDERED: OLODATEROL INH SCH (20:25)
[2024-04-18] MEDS ORDERED: Ipratropium/Albuterol SulF 2.5-0.5MG/3 ML Amp INH SCH (20:55)
[2024-04-18] MEDS ORDERED: Docusate Sodium 100 MG Cap PO SCH (21:00)
[2024-04-18] MEDS ORDERED: Methocarbamol 500 MG Tab PO PRN (23:40)
[2024-04-19 03:01] VITALS: BP 110/60
[2024-04-19] MEDS ORDERED: Miconazole Nitrate 2% 85 GM PWD TOP PRN (04:25)
[2024-04-19 05:02] LABS: BASOPHILS ABSOLUTE AUTO 0.02 K/mm3 (0.00-0.23); BASOPHILS PERCENT AUTO 0 % (0-2); EOSINOPHILS ABSOLUTE AUTO 0.21 K/mm3 (0.00-0.68); EOSINOPHILS PERCENT AUTO 2 % (0-6); Hematocrit 32.5 % (37.0-53.0); Hemoglobin 10.8 g/dL (13.5-17.5); IMMATURE GRAN ABSOLUTE AUTO 0.04 K/mm3 (0.00-0.10); IMMATURE GRAN PERCENT AUTO 1 % (0-1); LYMPHOCYTES ABSOLUTE AUTO 0.41 K/mm3 (0.84-5.20); LYMPHOCYTES PERCENT AUTO 5 % (21-46); MONOCYTES ABSOLUTE AUTO 1.06 K/mm3 (0.16-1.47); MONOCYTES PERCENT AUTO 12 % (4-13); Mean Corpuscular HGB 30.1 pg (26.0-34.0); Mean Corpuscular HGB Conc 33.2 g/dL (31.5-36.5); Mean Corpuscular Volume 91 fL (80-100); Mean Platelet Volume 8.9 fL (9.1-12.4); NEUTROPHILS ABSOLUTE AUTO 7.02 K/mm3 (1.96-9.15); NEUTROPHILS PERCENT AUTO 80 % (41-73); Platelet Count 222 K/mm3 (150-400); RDW Coefficient Variation 14.2 % (11.7-14.2); RDW Standard Deviation 47.5 fL (35.1-46.3); Red Blood Cell Count 3.59 M/mm3 (4.30-5.90); White Blood Cell Count 8.76 K/mm3 (4.00-11.30)
--- NOTE | 2024-04-19 05:36 | NUR ---
NOC SUMMARY- PT PAIN MANAGED WELL. PT HAD COMPLAINED OF MUSCLE SPASMS AND PROVIDER ORDERED SOME RELAXERS FOR HIM. PT REPORTS ITCHINESS IN GROIN DESENEX WAS ORDERED WELL. PT HAS BEEN NPO SINCE MIDNIGHT. PT CURRENTLY RESTING QUIETLY. PT DE LUNA DRAINING TO GRAVITY. CALL LIGHT IN REACH.
[2024-04-19 05:44] LABS: Albumin, Blood 2.9 g/dL (3.4-5.0); Albumin/Globulin Ratio 1.1 (0.8-1.8); Bilirubin, Total 0.8 mg/dL (0.1-1.0); Calcium, Blood 8.3 mg/dL (8.5-10.1); Creatinine, Blood 0.75 mg/dL (0.60-1.20); Globulin, Blood 2.7 g/dL (2.2-4.0); Magnesium, Blood 1.9 mg/dL (1.6-2.4); Potassium, Blood 3.3 mmol/L (3.5-5.5); Total Protein, Blood 5.6 g/dL (6.4-8.2)
[2024-04-19 07:20] VITALS: BP 123/64
[2024-04-19] MEDS ORDERED: Enoxaparin 40 MG/0.4 ML SYR SC SCH (09:00)
[2024-04-19] MEDS ORDERED: Loratadine 10 MG Tab PO SCH (09:00)
[2024-04-19] MEDS ORDERED: Potassium Chloride 20 MEQ TabCR PO ONE (09:00)
[2024-04-19] MEDS ORDERED: Nicotine 14 MG PATCH TOP SCH (09:00)
[2024-04-19] MEDS ORDERED: D5W-1/2NS 1,000 ML IV SCH (13:00)
[2024-04-19] MEDS ORDERED: Thiamine HCl 300 MG in NS 100 ML IV ONE (15:50)
[2024-04-19 16:00] VITALS: BP 107/71
[2024-04-19] MEDS ORDERED: ATOR20 PO (16:54)
--- NOTE | 2024-04-19 18:15 | NUR ---
SHIFT SUMMARY A&OX4, COOPERATIVE WITH CARE. R HIP PAIN MEDICATED PER EMAR. NO ACUTE EVENTS THIS SHIFT. DENIES CP/PRESSURE, HEADAACHE, DIZZINESS, OR SOB. ON 3L O2 VIA NC. CONTINUOUS BIOX. DE LUNA PATENT AND DRAINING YELLOW URINE. MRI OF R HIP DONE TODAY. PLANS FOR SURGERY TOMORROW. NPO AT MIDNIGHT. CURRENTL EATING DINNER. FAMILY AT BEDSIDE. CALL LIGHT WITHIN REACH.
[2024-04-19 19:38] VITALS: BP 100/56
[2024-04-20] VITALS (17 sets, daily range): BP systolic 97–159; BP diastolic 62–99
--- NOTE | 2024-04-20 04:59 | NUR ---
A&O, able to make needs known, VSS, ruiz patent and draining clear yellow urine, repositioned as patient allowed for comfort, medicated per MAR for pain, NPO since mid, resting quietly with eyes closed at this time, will cont to monitor until report given to oncoming nurse.
[2024-04-20 06:04] LABS: Bun/Creatinine Ratio 13.5 (12.0-20.0); Creatinine, Blood 0.74 mg/dL (0.60-1.20); Phosphorus, Blood 2.6 mg/dL (2.5-4.9); Potassium, Blood 3.9 mmol/L (3.5-5.5)
[2024-04-20] MEDS ORDERED: Thiamine HCl 100 MG Tab PO SCH (09:00)
[2024-04-20] MEDS ORDERED: Multivitamins 1 Tab PO SCH (09:00)
--- NOTE | 2024-04-20 15:19 | NUR ---
PT BROUGHT FROM FLOOR TO DAY SURGERY FOR PROCEDURE. History, Chart, Medications and Allergies reviewed before start of procedure. Lungs clear T/O to Auscultation. Patient confirms NPO status and agrees with scheduled surgery. Pre-Op teaching done. Pt verbalizes understanding. PT BELONGINGS LEFT IN ROOM ON MEDICAL FLOOR. PT GLASSES TAKEN TO PACU FOR SAFEKEEPING.
[2024-04-20] MEDS ORDERED: Tranexamic Acid 100 ML IV SCH (15:20)
[2024-04-20] MEDS ORDERED: Lactated Ringer's 1,000 ML IV SCH (15:20)
[2024-04-20] MEDS ORDERED: CeFAZolin Sodium 2,000 MG in NS 100 ML IV SCH (15:20)
--- NOTE | 2024-04-20 15:20 | NUR ---
PT HAS 20G IV TO LEFT HAND THAT FLUSHES WELL AND FLOWS TO GRAVITY.
--- NOTE | 2024-04-20 15:30 | NUR ---
PT IS A&OX4, VSS AND ON 3LNC. PT WENT DOWN FOR SURGERY @1530 FOR L HIP FX.
[2024-04-20] MEDS ORDERED: Bupivacaine 0.5% HCl 5 MG/ML 30MLVIAL ONE (15:45)
[2024-04-20] MEDS ORDERED: EpiNEPhrine 1 MG/1 ML 1ML Vial ONE (15:45)
[2024-04-20] MEDS ORDERED: Magnesium Sulf 2 GM/Water 50ML 50 ML IV ONE (15:55)
[2024-04-20] MEDS ORDERED: Magnesium Sulfate 500 MG / ML 2ML Vial IV ONE (16:00)
[2024-04-20] MEDS ORDERED: propofoL 60 ML IV ONE (16:01)
[2024-04-20] MEDS ORDERED: FentaNYL Citrate 50 MCG/ML 2 ML Injection ONE (16:02)
[2024-04-20] MEDS ORDERED: Rocuronium Bromide 10 MG/ML 5ML Injection IV ONE ×2 (16:21→16:26)
[2024-04-20] MEDS ORDERED: Ondansetron HCl 2 MG / ML 2ML Vial ONE (16:26)
[2024-04-20] MEDS ORDERED: Metoclopramide HCl 5MG / ML 2ML Vial ONE (16:26)
--- NOTE | 2024-04-20 16:32 | NUR ---
REVIEWED ALL NOTES AND ASSESSMENTS BY JORGE PAUL AND AGREE WITH THEM.
[2024-04-20] MEDS ORDERED: Sugammadex Sodium 200 MG/2ML SDV (100 MG/ML) ONE (16:45)
--- NOTE | 2024-04-20 19:22 | NUR ---
ARRIVAL/POST OP NOTE PT ARRIVED TO ROOM 220 FROM PACU AT 1805. PT IS A/O X4, RESPONSIVE, TOLERATING PO FLUIDS AND REG DIET W/O N/V. SALINE LOCKED. PT MEDICATED FOR PAIN W/ TORADOL AND TYLENOL. DRESSING ON L HIP C/D/I, PT DENIES N/T TO BLE, CIRCULATION INTACT IN L FOOT. VSS. PT IS ON 3LNC W/ O2 SATS >92%. CALL LIGHT IN REACH. REPORT TO NOC CAITLIN BORGES.
[2024-04-21] MEDS ORDERED: CeFAZolin Sodium 2,000 MG in NS 100 ML IV SCH
[2024-04-21 04:35] VITALS: BP 110/72
--- NOTE | 2024-04-21 04:47 | NUR ---
SHIFT SUMMARY POD1 LEFT GAMMA NAILING. TRANG REMAINED C/D/I OVERNIGHT. CRYOTHERAPY TO SITE. PAIN MANAGED USING NPIS AND PER EMAR. TOLERATING PO. INDWELLING DE LUNA CATHETER IN PLACE FOR ACUTE RETENTION; CATHETER CARES PERFORMED DURING SHIFT. A&OX4. PLEASANT & COOPERATIVE WITH CARES. PT ABLE TO VOICE NEEDS; USED CALL LIGHT APPROPRIATELY T/O SHIFT. PT VOICED UNDERSTANDING OF PLAN OF CARES, DENIES QUESTIONS/CONCERNS AT THIS TIME.
[2024-04-21 06:03] LABS: Bun/Creatinine Ratio 14.3 (12.0-20.0); Creatinine, Blood 0.7 mg/dL (0.60-1.20); Magnesium, Blood 2.3 mg/dL (1.6-2.4); Phosphorus, Blood 2.9 mg/dL (2.5-4.9)
[2024-04-21 07:25] VITALS: BP 106/65
[2024-04-21] MEDS ORDERED: Polyethylene Glycol 3350 17 gm PO PRN (09:10)
[2024-04-21 14:18] VITALS: BP 134/77
--- NOTE | 2024-04-21 14:33 | NUR ---
AFTERNOON SUMMARY POD 1 L HIP NAILING. AQUACEL DRESSING CDI. UP TO CHAIR WITH THERAPY. 1 SBA USING FWW/GB. TYLENOL/TORADOL FOR PAIN CONTROL. MINOR SOFT BITE SIZED DIET. ON BASELINE 3L O2 VIA NC. DE LUNA IN PLACE WITH CLEAR YELLOW URINE. [facility]. CALL LIGHT WITHIN REACH.
--- NOTE | 2024-04-21 19:06 | NUR ---
SHIFT SUMMARY PT A&OX4/VSS/3LNC, UP TO CHAIR, MINOR PO/MEDS ONE AT A TIME, PAIN MANAGED WITH TYLENOL/TORADOL/ROBAXIN, DE LUNA PATENT/DRAINING YELLOW URINE, AMB FWW SBA. REPORT TO KATERINA TUCKER.
[2024-04-21 19:58] VITALS: BP 126/73
[2024-04-22 03:35] VITALS: BP 125/85
--- NOTE | 2024-04-22 04:25 | NUR ---
SHIFT SUMMARY NO ACUTE CHANGES OVERNIGHT. POD2 LEFT HIP NAILING. AQUACELL TO HIP REMAINED C/D/I OVERNIGHT. PAIN MANAGED USING NPIS AND PER EMAR. INDWELLING DE LUNA CATHETER DISCONTINUED AROUND 0400. 1PA USING FWW/GB. 3L NC OVERNIGHT PER BASELINE. A&OX4. PLEASANT & COOPERATIVE WITH CARES. ABLE TO VOICE NEEDS & USED CALL LIGHT APPROPRIATELY OVERNIGHT. PT VOICED UNDERSTANDING OF PLAN OF CARES, DENIES QUESTIONS/CONCERNS AT THIS TIME.
[2024-04-22 05:22] LABS: Bun/Creatinine Ratio 16.8 (12.0-20.0); Calcium, Blood 8.5 mg/dL (8.5-10.1); Creatinine, Blood 0.66 mg/dL (0.60-1.20); Phosphorus, Blood 2.8 mg/dL (2.5-4.9); Potassium, Blood 4.5 mmol/L (3.5-5.5)
[2024-04-22 07:08] VITALS: BP 119/76
[2024-04-22] MEDS ORDERED: Calcium Carbonate 500 MG Tab Chew PO PRN (15:30)
[2024-04-22 15:39] VITALS: BP 126/83
--- NOTE | 2024-04-22 17:30 | NUR ---
SHIFT SUMMARY PT POD2 L HIP NAILING. A/OX4. MINOR PO INTAKE WELL. VOIDING NORMALLY IN URINAL. PT WAS UP IN CHAIR MOST OF THE DAY. ADEQUATE PAIN CONTROL WITH TYLENOL, TORADOL, AND ROBAXIN. PT IN GOOD MOOD AND ENGAGING WITH THERAPY. NO ISSUES NOTED DURING SHIFT. AQUACEL TO L HIP C/D/I. PT HAS CALL LIGHT IN REACH AND SIDE RAILS UP.
[2024-04-22 19:32] VITALS: BP 139/84
[2024-04-23 00:15] VITALS: BP 127/78
[2024-04-23 03:32] VITALS: BP 149/81
--- NOTE | 2024-04-23 06:11 | NUR ---
SHIFT SUMMARY POD 3 L HIP NAILING. AQUACEL CDI. PAIN MANAGED PER EMAR. CONT BIOX IN PLACE WITH SPO2 ABOVE 93% ON 3L NC. MINOR PO INTAKE. ICE TO LEFT HIP TOLERATED. NO ACUTE CHANGES T/O SHIFT. PLAN TO WORK WITH THERAPY TODAY. RESTING IN BED WITH CALL LIGHT IN PLACE. PT ABLE TO MAKE NEEDS KNOWN. WILL GIVE REPORT TO ONCOMING CAITLIN
[2024-04-23 07:29] VITALS: BP 128/77
--- NOTE | 2024-04-23 10:41 | NUR ---
MORNING NOTE ASSUMED CARE AT APPROX 0715. PATIENT ALERT AND ORIENTED X4. COMMUNICATING NEEDS EFFECTIVELY. VSS. ON BASELINE 3L VIA NC, SATs >90%. OCCASIONAL CONGESTED COUGH. EXPERIENCES SHORTNESS OF BREATH WITH MOBILITY. POD 3 L HIP PINING - AQUACEL DRESSING C/D/I. PAIN MANAGED PER EMAR AND WITH ICE PACK. TOLERATING PO INTAKE. USES URINAL INDEPENDENTLY TO VOID. UP WITH 1P ASSIST FWW GB TO RECLINER CHAIR THIS MORNING. BEDBATH PERFORMED. CALL LIGHT IN REACH.
--- NOTE | 2024-04-23 14:54 | NUR ---
REPORT GIVEN TO CHAPO TUCKER TO ASSUME CARE AT THIS TIME
[2024-04-23 15:03] VITALS: BP 129/82
[2024-04-23 19:37] VITALS: BP 119/79
--- NOTE | 2024-04-23 19:58 | NUR ---
SHIFT SUMMARY POD3 L HIP PINNING, A/O, VSS, TOLERATING PO, 3L NC WITH IS HIS BASELINE, HE WAS UP IN THE CHAIR WHEN THIS RN TOOK OVER CARE FROM PRIOR RN, MEDICATED FOR PAIN 1X. NO ACUTE EVENTS THIS SHIFT, CALL LIGHT IN REACH.
[2024-04-24] MEDS ORDERED: HYDROcodone 5-APAP 325 TAB PO PRN ×2 (01:50)
[2024-04-24 03:50] VITALS: BP 122/77
--- NOTE | 2024-04-24 04:14 | NUR ---
SHIFT SUMMARY POD 4 LEFT HIP PINNING. NO ACUTE CHANGES T/O SHIFT. A/OX4 WITH VSS. AQUACEL TO LEFT HIP CDI, ICE THERAPY APPLIED MINOR. PAIN MANAGED PER EMAR. UP IN CHAIR FOR START OF SHIFT. 3L NC AT BASELINE, BREATHING TX PRN. MINOR PO INTAKE. IVF SL. PLAN TO WORK WITH THERAPY AND D[facility]. PT ABLE TO MAKE NEEDS KNOWN. HAS CALL LIGHT IN REACH. WILL REPORT TO ONCOMING CAITLIN
[2024-04-24 04:43] LABS: BASOPHILS ABSOLUTE AUTO 0.08 K/mm3 (0.00-0.23); BASOPHILS PERCENT AUTO 1 % (0-2); EOSINOPHILS ABSOLUTE AUTO 0.57 K/mm3 (0.00-0.68); EOSINOPHILS PERCENT AUTO 9 % (0-6); Hematocrit 27.9 % (37.0-53.0); Hemoglobin 9.5 g/dL (13.5-17.5); IMMATURE GRAN ABSOLUTE AUTO 0.03 K/mm3 (0.00-0.10); IMMATURE GRAN PERCENT AUTO 1 % (0-1); LYMPHOCYTES ABSOLUTE AUTO 0.77 K/mm3 (0.84-5.20); LYMPHOCYTES PERCENT AUTO 13 % (21-46); MONOCYTES ABSOLUTE AUTO 0.91 K/mm3 (0.16-1.47); MONOCYTES PERCENT AUTO 15 % (4-13); Mean Corpuscular HGB 29.9 pg (26.0-34.0); Mean Corpuscular HGB Conc 34.1 g/dL (31.5-36.5); Mean Corpuscular Volume 88 fL (80-100); Mean Platelet Volume 8.7 fL (9.1-12.4); NEUTROPHILS ABSOLUTE AUTO 3.77 K/mm3 (1.96-9.15); NEUTROPHILS PERCENT AUTO 62 % (41-73); Platelet Count 329 K/mm3 (150-400); RDW Coefficient Variation 13.9 % (11.7-14.2); RDW Standard Deviation 45.1 fL (35.1-46.3); Red Blood Cell Count 3.18 M/mm3 (4.30-5.90); White Blood Cell Count 6.13 K/mm3 (4.00-11.30)
[2024-04-24 05:04] LABS: Albumin, Blood 2.4 g/dL (3.4-5.0); Albumin/Globulin Ratio 0.8 (0.8-1.8); Bilirubin, Total 0.9 mg/dL (0.1-1.0); Bun/Creatinine Ratio 19.6 (12.0-20.0); Calcium, Blood 8.3 mg/dL (8.5-10.1); Creatinine, Blood 0.61 mg/dL (0.60-1.20); Globulin, Blood 3.2 g/dL (2.2-4.0); Magnesium, Blood 1.9 mg/dL (1.6-2.4); Potassium, Blood 4.3 mmol/L (3.5-5.5); Total Protein, Blood 5.6 g/dL (6.4-8.2)
[2024-04-24 07:05] VITALS: BP 120/78
--- NOTE | 2024-04-24 10:31 | NUR ---
MORNING NOTE THIS RN ASSUMED CARE AT APPROX 0715. PATIENT ALERT AND ORIENTED X4. COMMUNICATING NEEDS EFFECTIVELY. VSS. ON HOME 3L VIA NC, SATs >90%. DENIES SHORTNESS OF BREATH AT REST, MILD SHORTNESS OF BREATH WITH MOBILITY. OCCASIONAL CONGESTED HACKING COUGH. POD 4 L HIP PINING - DRESSING C/D/I. TOLERATING PO INTAKE. UP WITH 1P FWW GB TO CHAIR, BSC. CURRENTLY SITTING IN CHAIR. CALL LIGHT IN REACH.
[2024-04-24 14:18] VITALS: BP 125/86
--- NOTE | 2024-04-24 17:29 | NUR ---
SHIFT SUMMARY NO ACUTE EVENTS SINCE PREVIOUS DOCUMENTATION. VSS. PATIENT REMAINS ON 3L VIA NC, SATs >90%. RECEIVING PRN BREATHING TREATMENTS FROM RT. AQUACEL DRESSING C/D/I. PAIN MANAGED PER EMAR AND WITH ICE PACK. TOLERATING PO INTAKE. UP WITH 1P FWW GB TO RECLINER CHAIR. USES URINAL INDEPENDENTLY TO VOID. NO BM THIS SHIFT. CALL LIGHT IN REACH. WILL CONTINUE TO MONITOR AND REPORT TO ONCOMING RN.
[2024-04-24 20:05] VITALS: BP 93/57
[2024-04-25 02:09] VITALS: BP 108/64
--- NOTE | 2024-04-25 04:28 | NUR ---
SHIFT SUMMARY LEDY WAS ALERT AND FULLY ORIENTED ON ASSESMENT AND VISITING WITH HIS NEPHEW. PT AQUACEL TO HIP IS C/D/I, PAIN IS WELL CONTROLLED. NO ACUTE EVENTS TONIGHT. PT RESTING WITH CALL LIGHT IN REACH.
[2024-04-25 07:23] VITALS: BP 113/77
[2024-04-25 13:01] LABS: Albumin, Blood 2.6 g/dL (3.4-5.0); Albumin/Globulin Ratio 0.8 (0.8-1.8); Bun/Creatinine Ratio 19.1 (12.0-20.0); Calcium, Blood 8.6 mg/dL (8.5-10.1); Creatinine, Blood 0.63 mg/dL (0.60-1.20); Globulin, Blood 3.2 g/dL (2.2-4.0); Potassium, Blood 4.5 mmol/L (3.5-5.5); Total Protein, Blood 5.8 g/dL (6.4-8.2)
[2024-04-25] MEDS ORDERED: HYDROcodone 5-APAP 325 TAB PO PRN (14:21)
[2024-04-25 15:07] VITALS: BP 100/62
[2024-04-25] MEDS ORDERED: Lactated Ringer's 1,000 ML IV SCH (17:05)
[2024-04-25] MEDS ORDERED: Naproxen 250 MG TAB PO PRN (17:05)
[2024-04-25] MEDS ORDERED: HYDROmorphone HCl 2 MG Tab PO PRN (17:05)
--- NOTE | 2024-04-25 17:21 | NUR ---
CARE ASSUMED OF PT AT APPROXIMATELY 1710. PT ALERT/ORIENTED AND PLEASANT DURING BEDSIDE REPORT.
[2024-04-25 19:08] VITALS: BP 111/61
--- NOTE | 2024-04-25 19:39 | NUR ---
SHIFT SUMMARY PT HAS DONE WELL TODAY. PAIN CONTROLLED. EATING, DRINKING, & URINATING VERY WELL. WORKED w/ THERAPY. PLANS TO DC TO [place] TOMORROW.
--- NOTE | 2024-04-25 19:58 | NUR ---
NO CHANGES SINCE CARE ASSUMED OF PT AT APPROXIMATELY 1710. BEDSIDE REPORT GIVEN TO KOLBY TUCKER.
[2024-04-26 03:29] VITALS: BP 103/67
--- NOTE | 2024-04-26 04:05 | NUR ---
SHIFT SUMMARY POD 6 L HIP PINNING PT ABLE TO REST DURING THE SHIFT. PAIN MANAGED PER EMAR. TOLERATING PO INTAKE. VOIDING. AQAUCEL TO L HIP IS C/D/I. PT ON BASELINE 3L NC. 1P ASST TO CHAIR. VSS. NO OTHER CONCERNS AT THIS TIME, CALL LIGHT WITHIN REACH
[2024-04-26 05:01] LABS: Albumin, Blood 2.5 g/dL (3.4-5.0); Albumin/Globulin Ratio 0.9 (0.8-1.8); Bilirubin, Total 0.8 mg/dL (0.1-1.0); Calcium, Blood 8.7 mg/dL (8.5-10.1); Creatinine, Blood 0.67 mg/dL (0.60-1.20); Globulin, Blood 2.8 g/dL (2.2-4.0); Potassium, Blood 4.3 mmol/L (3.5-5.5); Total Protein, Blood 5.3 g/dL (6.4-8.2)
[2024-04-26 07:15] VITALS: BP 124/76
[2024-04-26 10:43] VITALS: BP 117/75
--- NOTE | 2024-04-26 10:51 | NUR ---
MESSAGE LEFT FOR DR. BEARD AT 0598 REQUESTING RETURN CALL REGARDING DISCHARGE CONCERNS.
--- NOTE | 2024-04-26 11:09 | NUR ---
SHORTNESS OF BREATH PT REPORTED HE FELT SOME INCREASED SHORTNESS OF BREATH AT APPROXIMATELY 1030. RESP RATE AND EFFORT APPEAR ELEVATED. HR LOW 100'S, RESP RATE 24-26, O2 SATURATION 100% ON 3L O2 VIA NC, TEMP 99.2, BP WNL, VEW SCORE 3. DR. BEARD NOTIFIED OF CHANGES, SHE ORDERED A STAT CHEST XRAY. YAMILA TUCKER FROM DISCHARGE PLANNING WAS NOTIFIED OF CHANGES, PLAN TO DELAY DISCHARGE AT THIS TIME. PT HAS INCENTIVE SPIROMETER AT HIS BEDSIDE BUT REPORTS HE HAS ONLY BEEN OCCASIONALLY USING IT. HE WAS EDUCATED TO USE HIS INCENTIVE SPIROMETER 3X EVERY 15 MINUTES, PT DEMONSTRATED USE AND WAS COACHED ABOUT PROPER TECHNIQUE. AFTER USING IS PT COUGHED, MOIST AND PRODUCTIVE, THICK SECRETIONS.
[2024-04-26] MEDS ORDERED: Azithromycin 250 MG Tab PO ONE (12:35)
[2024-04-26] MEDS ORDERED: Amoxicillin/Clavulanate K 875 MG Tab PO SCH (13:00)
--- NOTE | 2024-04-26 13:10 | NUR ---
PER DR. BEARD CONTINUE WITH PLAN FOR DISCHARGE AT 1400. ATTEMPTED TO GIVE REPORT TO XIAO TUCKER AT THE [facility] AT 1311.
[2024-04-26 13:11] VITALS: BP 118/75
--- NOTE | 2024-04-26 14:42 | NUR ---
DISCHARGE REPORT GIVEN TO XIAO TUCKER AT THE [place] PRIOR TO DISCHARGE. SHE WAS NOTIFIED OF VS FROM THIS AM WELL CHEST XRAY AND THAT ABX HAVE BEEN STARTED. PT DISCHARGED WITH TRANSPORT JUST AFTER 2PM.
== END 2024-04-26 14:20 | DRG 480 ==
LOC: ER 13:18 → MEDS 13:19 → ER 17:51 → MEDS 18:25 → SURS 04-19 15:07 → MEDS 04-19 15:08 → SURS 04-20 16:16
PROVIDERS: Internal Medicine; Orthopaedic Surgery Sports Medicine; ADMIT Student in an Organized Health Care Education/Training Program
PROC: 0QS706Z Reposition Left Upper Femur with Intramedullary Internal Fixation Device, Open Approach (ICD-10-PCS; principal; 2024-04-20 16:00)
DX: S72.142A Displaced intertrochanteric fracture of left femur, initial encounter for closed fracture (principal); J18.9 Pneumonia, unspecified organism; J96.11 Chronic respiratory failure with hypoxia; J44.0 Chronic obstructive pulmonary disease with (acute) lower respiratory infection; E78.5 Hyperlipidemia, unspecified; I10 Essential (primary) hypertension; J43.9 Emphysema, unspecified; R13.10 Dysphagia, unspecified; W01.0XXA Fall on same level from slipping, tripping and stumbling without subsequent striking against object, initial encounter; Z99.81 Dependence on supplemental oxygen; Z87.891 Personal history of nicotine dependence; Z79.899 Other long term (current) drug therapy; Z88.1 Allergy status to other antibiotic agents; Z91.011 Allergy to milk products
CPT/HCPCS: 36415; 51701; 71045; 72192; 73502; 73721; 76705; 76857; 80048; 80053; 82803; 82947; 83735; 84100; 85025; 92526; 92610; 94640; 94664; 94760; 94762; 96372; 96374; 96375; 96376; 97110; 97161; 97165; 97530; 97535; 99285-25; A9270; C1713; G0378; J0171; J0690; J1650; J1885; J2270; J2405; J2704; J2765; J3010; J3411; J7042; J7120

== ENCOUNTER 2025-04-08 19:40 | Inpatient (IN) | payer OTHER ==
[~2025-04-08] VITALS: Ht 175.3 cm; Wt 54.4 kg
[~2025-04-08 19:40] MED LIST changes: +ATOR20 PO; +Aspir 8181 MG PO
[2025-04-08] MEDS ORDERED: Ipratropium/Albuterol SulF 2.5-0.5MG/3 ML Amp INH ONE (19:55)
[2025-04-08 20:00] LABS: BASOPHILS ABSOLUTE AUTO 0.07 K/mm3 (0.00-0.23); BASOPHILS PERCENT AUTO 1 % (0-2); EOSINOPHILS ABSOLUTE AUTO 0.33 K/mm3 (0.00-0.68); EOSINOPHILS PERCENT AUTO 5 % (0-6); Hematocrit 36.1 % (37.0-53.0); Hemoglobin 12.4 g/dL (13.5-17.5); IMMATURE GRAN ABSOLUTE AUTO 0.05 K/mm3 (0.00-0.10); IMMATURE GRAN PERCENT AUTO 1 % (0-1); LYMPHOCYTES ABSOLUTE AUTO 1.05 K/mm3 (0.84-5.20); LYMPHOCYTES PERCENT AUTO 15 % (21-46); MONOCYTES ABSOLUTE AUTO 1.35 K/mm3 (0.16-1.47); MONOCYTES PERCENT AUTO 19 % (4-13); Mean Corpuscular HGB Conc 34.3 g/dL (31.5-36.5); Mean Corpuscular Volume 91 fL (80-100); NEUTROPHILS ABSOLUTE AUTO 4.21 K/mm3 (1.96-9.15); NEUTROPHILS PERCENT AUTO 60 % (41-73); NRBC ABSOLUTE 0.00 K/mm3 (0.00-0.02); NRBC Auto 0.0 /100 WBC (0.0-0.2); Platelet Count 237 K/mm3 (150-400); RDW Coefficient Variation 12.8 % (11.7-14.2); RDW Standard Deviation 42.5 fL (35.1-46.3)
[2025-04-08 20:15] LABS: Alanine Aminotransfer (ALT/SGP 27.0 U/L (12-78); Albumin, Blood 3.6 g/dL (3.4-5.0); Albumin/Globulin Ratio 1.2 (0.8-1.8); Anion Gap 6.0 mmol/L (3-11); Aspartate Aminotrans (AST/SGOT 19.0 U/L (12-37); Bilirubin, Total 0.4 mg/dL (0.1-1.0); Blood Urea Nitrogen 14.0 mg/dL (8-24); CO2, Blood 32.0 mmol/L (21-32); Calcium, Blood 8.8 mg/dL (8.5-10.1); Chloride, Blood 90.0 mmol/L (98-108); Creatinine, Blood 0.67 mg/dL (0.60-1.20); Globulin, Blood 2.9 g/dL (2.2-4.0); Glucose, Blood 115.0 mg/dL (70-99); Potassium, Blood 4.4 mmol/L (3.5-5.5); Sodium, Blood 124.0 mmol/L (136-145); Total Protein, Blood 6.5 g/dL (6.4-8.2)
[2025-04-08 21:15] LABS: Source, Urine Clean Catch
[2025-04-08] MEDS ORDERED: Albuterol 2.5 MG/3 ML VIAL INH SCH (21:15)
[2025-04-08 21:26] LABS: Bilirubin, Urine Neg (Neg); Color, Urine Yellow (P-Yellow); Glucose Qualitative, Urine Neg (Neg); Ketones, Urine Neg (Neg); Leukocyte Esterase, Urine Neg (Neg); Protein, Urine Neg (Neg); Specific Gravity, Urine 1.010 (1.003-1.022); Urobilinogen, Urine NORM (Normal)
[2025-04-08 21:29] LABS: Sodium, Urine, Random 31 mmol/L (20-110)
[2025-04-08 21:36] LABS: Osmolality, Urine 163 mos/kg (15-1400)
[2025-04-08] MEDS ORDERED: FLU VACC TS2025(65UP)/MF59C/PF 45 MCG/0.5 ML SYRINGE IM SCH (22:05)
[2025-04-08] MEDS ORDERED: Ipratropium/Albuterol SulF 2.5-0.5MG/3 ML Amp INH SCH (22:25)
[2025-04-08] MEDS ORDERED: LORA10ER PO (23:49)
[2025-04-08] MEDS ORDERED: ALPR.25 PO (23:51)
[2025-04-09 04:46] VITALS: BP 114/73
[2025-04-09 06:06] LABS: Anion Gap 9.0 mmol/L (3-11); Blood Urea Nitrogen 18.0 mg/dL (8-24); CO2, Blood 28.0 mmol/L (21-32); Chloride, Blood 97.0 mmol/L (98-108); Creatinine, Blood 0.61 mg/dL (0.60-1.20); Glucose, Blood 177.0 mg/dL (70-99); Potassium, Blood 4.2 mmol/L (3.5-5.5); Sodium, Blood 130.0 mmol/L (136-145)
--- NOTE | 2025-04-09 06:45 | NUR ---
ADMIT NOTE/HE[employer]ENC[employer] DEAN SUMMARY PT A&OX4, VSS. ABLE TO COMMUNICATE NEEDS APPROPRIATELY. ADMIT FROM ED TODAY FOR HYPONATREMIA. ORIENTED TO CALL LIGHT, ROOM, AND FALL PRECAUTIONS. PT HAS BEEN ASLEEP ON AND OFF THIS SHIFT SINCE ADMISSION. CHEST RISE/RESPIRATIONS NOTED. ON 1L NC W/ CONT PULSE OX. O2 SATS >=95%. 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 PT ARRIVED TO UNIT W/ PUREWICK ON. PUREWICK REMAINS IN PLACE FOR FREQUENCY AND INCONT, DRAINING LIGHT YELLOW URINE TO SUCTION. BED RAILS UP X 2, BED IN LOWEST POSITION, BED WHEELS LOCKED, PERSONAL BELONGINGS AND CALL LIGHT WITHINR EACH FOR SAFETY.
[2025-04-09 07:41] LABS: Calcium, Blood 9.3 mg/dL (8.5-10.1)
[2025-04-09] MEDS ORDERED: Polyethylene Glycol 3350 17 gm PO PRN (07:45)
[2025-04-09] MEDS ORDERED: Formoterol/Mometasone MDI 5/200 mcg 13 GM INH SCH (08:00)
[2025-04-09 08:18] VITALS: BP 132/79
[2025-04-09] MEDS ORDERED: Cholecalciferol 1000 Unit Tablet (=25MCG) PO SCH (09:00)
[2025-04-09] MEDS ORDERED: Lactobacil 2-S.Thermo-Bifido 1 1 Cap PO SCH (09:00)
[2025-04-09] MEDS ORDERED: Dexamethasone Sod Phos 10 MG/ML 1ML VIAL IV SCH (09:00)
[2025-04-09] MEDS ORDERED: Enoxaparin 40 MG/0.4 ML SYR SC SCH (09:00)
[2025-04-09] MEDS ORDERED: Albuterol 2.5 MG/3 ML VIAL INH SCH (13:55)
[2025-04-09 15:13] VITALS: BP 134/88
--- NOTE | 2025-04-09 18:37 | NUR ---
SUMMARY PT WEANED TO ROOM AIR AND SATTING 95-97%. BASELINE OF 1-2 L AT HOME. 800 ML FLUID RESTRICITON. PT EDUCATED ON FLUID RESTRICTION RELATED TO SODIUM LEVLES. PT CONTINUES TO HAVE HACKING DRY COUGH. ARZOLA/DUSKY BILAT HANDS, O2 SATS HOWEVER WNL. PT HAS A HX OF LEFT HIP SURGERY LIMITING ROM. AT BASELINE HE AMBULATES SHORT DISTANCES WITH WALKER. PT HAS BEEN ON PUREWICK MOST OF SHIFT WITH CLEAR./YELLOW URINE OUTPUT.A/OX4. CALLING APPROPRIATELY.
[2025-04-09 19:21] VITALS: BP 133/84
[2025-04-09] MEDS ORDERED: Docusate Sodium/Senna 1 Tab PO SCH (21:00)
[2025-04-10 02:29] VITALS: BP 137/87
[2025-04-10 03:53] VITALS: BP 141/98
[2025-04-10] MEDS ORDERED: Albuterol 2.5 MG/3 ML VIAL INH PRN (04:20)
--- NOTE | 2025-04-10 05:28 | NUR ---
MATCHER OFFBEARER SUMMARY PT A&OX4, VSS. ABLE TO COMMUNICATE NEEDS APPROPRIATELY. PT HAS BEEN SLEEPING ON AND OFF THIS SHIFT. CHEST RISE/RESPIRATIONS NOTED. REMAINS ON 2L NC. O2 SATS >=94%. 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 UP TO BSC W/ 1PA & GB. DYSPNEA W/ EXERTION NOTED, THOUGH O2 SATS HOLD STEADY W/ EXERTION. PT DID REQUEST EXTRA BREATHING TREATMENT THIS SHIFT. ORDER FOR PRN ALBUTEROL OBTAINED. PT ALSO REQUESTED MIRALAX. ADMIN X 1. PT STATED HE HASN'T HAD A BM IN 2 DAYS AND THAT THIS COULD BE CONSTIPATION, BUT IT HAS ALSO BEEN NORMAL FOR HIM. BED RAILS UP X 2, BED IN LOWEST POSITION, BED WHEELS LOCKED, PERSONAL BELONGINGS AND CALL LIGHT WITHIN REACH FOR SAFETY.
[2025-04-10] MEDS ORDERED: Cosyntropin 0.25 MG / ML 1ML Vial IV ONE (06:00)
[2025-04-10 07:36] VITALS: BP 150/84
[2025-04-10 08:07] LABS: Hematocrit 38.4 % (37.0-53.0); Hemoglobin 13.3 g/dL (13.5-17.5); Mean Corpuscular HGB Conc 34.6 g/dL (31.5-36.5); Mean Corpuscular Volume 90 fL (80-100); NRBC ABSOLUTE 0.00 K/mm3 (0.00-0.02); NRBC Auto 0.0 /100 WBC (0.0-0.2); Platelet Count 265 K/mm3 (150-400); RDW Coefficient Variation 13.2 % (11.7-14.2); RDW Standard Deviation 43.5 fL (35.1-46.3)
[2025-04-10 08:36] LABS: Albumin, Blood 3.6 g/dL (3.4-5.0); Anion Gap 9 mmol/L (3-11); Blood Urea Nitrogen 15 mg/dL (8-24); CO2, Blood 28 mmol/L (21-32); Calcium, Blood 7.7 mg/dL (8.5-10.1); Chloride, Blood 97 mmol/L (98-108); Creatinine, Blood 0.65 mg/dL (0.60-1.20); Glucose, Blood 101 mg/dL (70-99); Magnesium, Blood 1.9 mg/dL (1.6-2.4); Phosphorus, Blood 2.2 mg/dL (2.5-4.9); Potassium, Blood 3.7 mmol/L (3.5-5.5); Sodium, Blood 130 mmol/L (136-145); Thyroid Stimulating Hormone 0.788 uIU/mL (0.360-4.800)
--- NOTE | 2025-04-10 11:55 | NUR ---
DR. RODGERS WAS NOTIFED DURING ROUNDS THE CORTISOL MED AND LABS WERE NOT COORDINATED LAST NIGHT SO THEY WERE ULTIMATELY CANCELLED. WILL RETRY AGAIN TOMORROW MORNING.
[2025-04-10] MEDS ORDERED: Azithromycin 200 MG/5 ML SUSP 5ML UDC PO SCH (12:45)
--- NOTE | 2025-04-10 14:55 | NUR ---
"SPiritual Care | Pt Request Pt. is awake and doing a breathing treatment when he welcomed my visit. Pt. is pleasant. When the teatment was over a lengthy life review was facilitated. Pt. verbalized many years served in the [employer]. Matters of ar and belief are also considered. Listened with interest and empathy. Pt. displayed evidence of trust and encouragement. Prayed with the family. Pt. verbalized gratitude for the spiritual care visit and welcomed this cement paver to return."
[2025-04-10 15:38] VITALS: BP 129/77
[2025-04-10] MEDS ORDERED: Sodium Phosphate Mono/Dibasic 250 MG Tab PO SCH (17:00)
[2025-04-10 19:44] VITALS: BP 118/79
[2025-04-11 02:56] VITALS: BP 125/73
--- NOTE | 2025-04-11 06:33 | NUR ---
Shift Summary Pt remains on 1L O2 NC and cont. O2 monitor. No desaturation events t/o the night. Per report pt did have a BM yesterday. Pt has coarse lung sounds and a wet sounding cough, he says that is his baseline d/t COPD. Pt remained in bed t/o the night using the urinal independently. He is AOx4, calls appropriatly. Pt c/o of hip pain, medicated per EMAR.
[2025-04-11 07:31] VITALS: BP 134/75
[2025-04-11 07:50] LABS: Hematocrit 39.5 % (37.0-53.0); Hemoglobin 13.6 g/dL (13.5-17.5); Mean Corpuscular HGB Conc 34.4 g/dL (31.5-36.5); Mean Corpuscular Volume 91 fL (80-100); NRBC ABSOLUTE 0.00 K/mm3 (0.00-0.02); NRBC Auto 0.0 /100 WBC (0.0-0.2); Platelet Count 278 K/mm3 (150-400); RDW Coefficient Variation 13.2 % (11.7-14.2); RDW Standard Deviation 44.0 fL (35.1-46.3)
[2025-04-11] MEDS ORDERED: Cosyntropin 0.25 MG / ML 1ML Vial IV SCH (08:00)
[2025-04-11 08:09] LABS: Albumin, Blood 3.6 g/dL (3.4-5.0); Anion Gap 9 mmol/L (3-11); Blood Urea Nitrogen 15 mg/dL (8-24); CO2, Blood 27 mmol/L (21-32); Calcium, Blood 8.4 mg/dL (8.5-10.1); Chloride, Blood 97 mmol/L (98-108); Creatinine, Blood 0.62 mg/dL (0.60-1.20); Glucose, Blood 103 mg/dL (70-99); Magnesium, Blood 2.1 mg/dL (1.6-2.4); Phosphorus, Blood 3.3 mg/dL (2.5-4.9); Potassium, Blood 4.0 mmol/L (3.5-5.5); Sodium, Blood 129 mmol/L (136-145)
[2025-04-11 15:31] VITALS: BP 150/89
[2025-04-11] MEDS ORDERED: MULVITA PO (15:37)
[2025-04-11] MEDS ORDERED: UREA PO (15:39)
--- NOTE | 2025-04-11 16:16 | NUR ---
DISCHARGE NOTE PATIETN GIVEN DISCHARGE PAPER WORK. FOLLOW UP APPOINTMENTS DISCUSSED, PLAN DISCUSSED AND OLD/NEW MEDICATIONS DISCUSSED. PATIENT VERBALIZED UNDERSTANDING OF HIS DUTIES AFTER DISCHARGE AND DENIES ANY FURTHER QUESTIONS AT THIS TIME. FAMILY MEMBER IS TAKING PATIENT HOME, IV REMOVED PRIOR TO DISCHARGE.
== END 2025-04-11 17:35 | disposition home health service (06) | DRG 644 ==
LOC: ER 19:40 → MEDS 19:41 → ENPENDDIS 04-11 10:41 → MEDS 04-11 17:35
PROVIDERS: Emergency Medicine; Internal Medicine; Student in an Organized Health Care Education/Training Program; ADMIT Internal Medicine
DX: E22.2 Syndrome of inappropriate secretion of antidiuretic hormone (principal); J44.1 Chronic obstructive pulmonary disease with (acute) exacerbation; E78.5 Hyperlipidemia, unspecified; I10 Essential (primary) hypertension; J43.9 Emphysema, unspecified; R53.81 Other malaise; Z91.0110 Allergy to milk products, unspecified; Z88.1 Allergy status to other antibiotic agents; Z99.81 Dependence on supplemental oxygen; Z87.891 Personal history of nicotine dependence; Z79.899 Other long term (current) drug therapy; Z79.82 Long term (current) use of aspirin
CPT/HCPCS: 36415; 71046; 80048; 80053; 80069; 80400; 81003; 82533; 83735; 83880; 83930; 83935; 84295; 84300; 84436; 84443; 84484; 85025; 85027; 93005; 93010; 94640; 94664; 94760; 94762; 96365; 96366; 96372; 96375; 97116; 97161; 99285-25; A9270; G0378; J0456; J0834; J1100; J1650; J2919; J7050